=== PATIENT | female | born 1965 | race Hispanic/Latino ===

== ENCOUNTER 2017-12-06 09:27 | Inpatient (IN) | payer OTHER ==
[~2017-12-06] VITALS: Ht 162.6 cm; Wt 106.6 kg
[~2017-12-06 09:27] MED LIST: FOLIC ACID1 M1 PO; LOSARTAN-HCTZ1 EAC1 PO; MULTI-DAY VITA1 EACH PO; OMEPRAZOLE20 M2 PO; ONDANSETRON ODT4 M1 PO; PROPRANOLOL HCL10 M1 PO; VITAMIN B-1100 MG PO
--- NOTE | 2017-12-06 09:49 | ED GI/GU/ABDOMINAL COMPLAINT ---
See Addendum History of Present Illness General Chief Complaint: Nausea, Vomiting, Diarrhea Stated Complaint: VOMITING ABD PAIN Source: patient Exam Limitations: no limitations Vital Signs & Intake/Output Vital Signs & Intake/Output Vital Signs Date Time Temp Pulse Resp B/P B/P Pulse O2 O2 Flow FiO2 Mean Ox Delivery Rate 12/06 1636 99.5 116 17 110/63 100 Room Air 12/06 1546 111 12/06 1438 98.7 114 18 110/58 97 Room Air Room Air 12/06 1114 98.6 115 18 130/66 100 12/06 0931 98.7 102 18 98 Room Air Room Air Allergies Coded Allergies: NO KNOWN ALLERGIES (02/14/11) Triage Note: PT TO ED WITH C/O NAUSEA VOMITING AND DIARRHEA X 2 DAYS, FEVER AT HOME HIGH 102. AFEBRILE IN TRIAGE, TOOK TYLENOL THIS MORNING. Triage Nurses Notes Reviewed? yes ? N Is pt currently ? No Onset: Gradual Duration: hour(s): Timing: recent history Quality/Severity: moderate HPI: 52-year-old female with hx of cirrhosis, hepatitis C, presents emergency department complaining of diarrhea beginning yesterday and vomiting beginning around 1:30 AM this morning. Patient states that she has been having diarrhea approximately every 20 minutes since onset. Last episode of vomiting was around 6:30 AM today. Patient states that diarrhea appeared Dark/black. Patient also saw blood tinge to her vomitus. Patient complaining of intermittent generalized abdominal cramping and epigastric burning. Yesterday she had a fever of 102F at work and intermittent chills. Patient states her had similar symptoms approximately 1 month ago. She denies recent changes in diet, dysuria, hematuria. (Judi SYLVESTER,Joanna Titus) Reconcile Medications Ascorbic Acid (Vitamin C) 1,000 MG TABLET 1 TAB PO DAILY SUPPLEMENT (Reported ) Bifidobacterium Infantis (Align) (Unknown Strength) CAPSULE (Unknown Dose) PO DAILY PROBIOTIC (Reported) Cyanocobalamin (Vitamin B-12) (Vitamin B-12) 500 MCG TABLET 1 TAB PO DAILY SUPPLEMENT (Reported) Losartan/Hydrochlorothiazide (Losartan-Hctz 50-12.5 MG Tab) 1 EACH TABLET 1 TAB PO DAILY BP (Reported) Naphazoline HCl/Glycerin (Clear Eyes Redness Relief Drop) 0.012 %-0.25 % DROPS 1 DROP OU AD PRN DRY EYES (Reported) Turmeric Root Extract (Turmeric) 500 MG CAPSULE 2 CAP PO DAILY SUPPLEMENT ( Reported) (Ar Flowers DO) Past History Travel History Traveled to [place] past 21 day No Medical History Any Pertinent Medical History? 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 Age 71. FATHER (unknown medical history). Age 72. Hx Contributory? No (Joanna Loyd) Review of Systems Review of Systems Constitutional: Reports: see HPI. EENTM: Reports: no symptoms. Respiratory: Reports: no symptoms. Cardiovascular: Reports: no symptoms. GI: Reports: see HPI. Genitourinary: Reports: no symptoms. Musculoskeletal: Reports: no symptoms. Skin: Reports: no symptoms. Neurological/Psychological: Reports: no symptoms. Hematologic/Endocrine: Reports: no symptoms. Immunologic/Allergic: Reports: no symptoms. All Other Systems: Reviewed and Negative (Joanna Loyd) Physical Exam Physical Exam General Appearance: well developed/nourished, no apparent distress, alert, awake Head: atraumatic, normal appearance Eyes: Bilateral: normal appearance. Ears, Nose, Throat, Mouth: hearing grossly normal Neck: normal inspection, supple, full range of motion Respiratory: normal breath sounds, no respiratory distress, lungs clear Cardiovascular: tachycardia Gastrointestinal: normal bowel sounds, soft, no organomegaly, MILD epigastric tenderness Rectal: normal inspection, normal rectal tone, heme positive stool, black stool Back: normal inspection, normal range of motion Extremities: normal range of motion Neurologic/Psych: awake, alert, oriented x 3 Skin: intact, normal color, warm/dry Core Measures ACS in differential dx? No Sepsis Present: No Sepsis Focused Exam Completed? No (Judi SYLVESTER,Joanna Titus) Progress Differential Diagnosis: appendicitis, bowel obstruction, diverticulitis, gastritis, hernia, inflamm bowel dis, pancreatitis, peptic ulcer, PUD/GERD, SBO, gastroenteritis, infectious diarrhea Plan of Care: Orders Procedure Date/time Status Nothing by Mouth 12/06 D Active CBC WITHOUT DIFFERENTIAL 12/06 2000 Active CBC WITHOUT DIFFERENTIAL 12/06 1640 Active TYPE & SCREEN (NOT X-MATCH) 12/06 1639 Active Pathway - chart 12/06 1539 Active Pathway - chart 12/06 1537 Active House Staff 12/06 1537 Active Patient Data 12/06 1529 Active Admit to inpatient 12/06 1507 Active PROTHROMBIN TIME 12/06 1257 Complete Add-on Test (ER Only) 12/06 1233 Active LIPASE 12/06 1001 Complete COMPREHENSIVE METABOLIC PANEL 12/06 1001 Complete CBC WITHOUT DIFFERENTIAL 12/06 1001 Complete AMYLASE 12/06 1001 Complete RAPID VIRAL INFLUENZA A 12/06 0936 Complete VTE Mechanical Prophylaxis 12/06 UNK Active Vital Signs 12/06 UNK Active Intake & Output 12/06 UNK Active EKG 12/06 UNK Active Current Medications Sig/Param Start time Last Medication Dose Stop Time Status Admin Sodium Chloride 1,000 ML BOLUS ONE 12/06 1645 AC 12/06 (Normal Saline 0.9%) 12/06 1744 1640 Sodium Chloride 1,000 ML Q6H 12/06 1645 AC (Normal Saline 0.9%) 12/07 0444 Sodium Chloride 1,000 ML ONCE ONE 12/06 1630 AC (Normal Saline 0.9%) 12/07 0229 Octreotide Acetate 500 MCG Q10H 12/06 1315 AC 12/06 (Sandostatin Drip) 1414 Sodium Chloride 500 ML (Normal Saline 0.9%) Laboratory Tests 12/06/17 1314: PT 22.4 H, INR 2.04 H 12/06/17 1023: Anion Gap 8, Estimated GFR > 60, BUN/Creatinine Ratio 50.0 H, Glucose 111 H, Calcium 8.7, Total Bilirubin 3.8 H, AST 134 H, ALT 79 H, Alkaline Phosphatase 140 H, Total Protein 6.1 L, Albumin 2.7 L, Globulin 3.4, Albumin/Globulin Ratio 0.8 L, Amylase 64, Lipase 130, CBC w Diff NO MAN DIFF REQ, RBC 3.41 L, MCV 84.9, MCH 28.0, MCHC 33.0, RDW 18.5 H, MPV 9.9, Gran % 82.1 H, Lymphocytes % 12.1 L, Monocytes % 5.5, Eosinophils % 0, Basophils % 0.3, Absolute Granulocytes 7.0 H, Absolute Lymphocytes 1.0 L, Absolute Monocytes 0.5, Absolute Eosinophils 0, Absolute Basophils 0 Microbiology 12/06 0935 NASOPHARYN: Influenza Virus A & B Rapid Smear - COMP Repeat abdominal exam following IV medications is without tenderness. Patient's rectal exam is guaiac positive. Spoke with Dr. Blake regarding this patient -she recommends ICU admission for endoscopy. Patient has history of esophageal varicoses, no history of bleeding related to esophageal varices. Dr. Blake recommends octreotide push and IV drip. Patient reports one dose of Advil 6 days ago however no daily NSAIDs or blood thinners or aspirin. Patient with episode of bright red blood in vomit, appearance of clots, approximately one cup. Patient medicated with second dose of IV Zofran. Blood pressure is stable, patient now complaining of right upper quadrant pain. Patient's right upper quadrant ultrasound is pending. I discussed these findings with Dr. Blake, she states she will be present to evaluate the patient soon, she states she will likely scope this patient today in ICU. Dr. Flowers spoke with hospitalist regarding this patient's ICU admission, he is present to see and evaluate the patient. The patient is stable in no acute distress. Initial ED EKG: none (Judi SYLVESTER,Joanna Titus) Departure Departure Disposition: STILL A PATIENT Condition: Stable Clinical Impression Primary Impression: GI bleed Qualifiers: GI bleed type/associated pathology: unspecified gastrointestinal hemorrhage type Qualified Code: K92.2 - Gastrointestinal hemorrhage, unspecified Secondary Impressions: Alcoholic cirrhosis, Hematemesis, Hyperbilirubinemia Referrals: Krishan Cabezas MD (PCP/Family) Departure Forms: Customer Survey General Discharge Information Admission Note Spoke With: Selvin Iverson MD Documentation of Exam: Documentation of any treatments & extenuating circumstances including Concerns Regarding Discharge (functional status, medication knowledge or non-compliance, living conditions, etc.) that warrant an admission rather than observation: [ Acute GI bleeding involving hematemesis and guaiac-positive stools requiring GI consultation, endoscopy today or tomorrow, IV octreotide, repeat labs, premature discharge medically unsafe.] (Judi SYLVESTER,Joanna Titus) PA/ASSISTED LIVING ASSISTANT Co-Sign Statement Statement: ED Attending supervision documentation- [x] I saw and evaluated the patient. I have also reviewed all the pertinent lab results and diagnostic results. I agree with the findings and the plan of care as documented in the PA's/ASSISTED LIVING ASSISTANT's documentation. [] I have reviewed the ED Record and agree with the PA's/ASSISTED LIVING ASSISTANT's documentation. [] Additions or exceptions (if any) to the PAs/ASSISTED LIVING ASSISTANT's note and plan are summarized below: [] I've seen and personally examined the patient. She is a 52-year-old female who presents with upper GI bleeding. She has past medical history of cirrhosis and esophageal varices. She is being admitted to the ICU. GI has been contacted and will be performing endoscopy in the ICU. (Ar Flowers DO) Critical Care Note Critical Care Note Critical Care Time: 30-74 min (Judi SYLVESTER,Joanna Titus)
[2017-12-06 10:53] LABS: ABSOLUTE BASOPHIL COUNT 0 /CUMM (0.0-0.2); ABSOLUTE EOSINOPHIL COUNT 0 /CUMM (0.0-0.7); ABSOLUTE MONOCYTE COUNT 0.5 /CUMM (0.10-0.60); BASOPHIL % 0.3 % (0.0-2.0); EOSINOPHIL % 0 % (0-5); HEMATOCRIT 28.9 % (37-47); MEAN CORPUSCULAR VOLUME 84.9 FL (81.0-99.0); MEAN PLATELET VOLUME 9.9 FL (7.4-10.4); RBC DISTRIBUTION WIDTH 18.5 % (11.5-14.5); RED BLOOD CELL CT 3.41 /CUMM (4.20-5.40); WHITE BLOOD CELL COUNT 8.5 /CUMM (4.8-10.8)
[2017-12-06 10:54] LABS: GRANULOCYTE % 82.1 % (42.2-75.2)
[2017-12-06 10:59] LABS: PLATELET COUNT 100 /CUMM (130-400)
[2017-12-06 13:26] LABS: PT 22.4 SEC (9.4-12.5)
--- NOTE | 2017-12-06 15:31 | History & Physical ---
Jose CRYSTAL,Juarez 12/06/17 1531: General Information and HPI MD Statement: I have seen and personally examined ITZEL JORGENSEN and documented this H&P. The patient is a 52 year old F who presented with a patient stated chief complaint of [BLACK STOOL, BLOOD IN VOMITUS]. Source of Information: patient, family Exam Limitations: no limitations History of Present Illness: 52-year-old female with past medical history of cirrhosis (since 1996) with hemorrhagic gastropathy secondary to portal hypertension and grade 1 esophageal varices, hepatitis C (since 1996), alcohol abuse, hypertension, thrombocytopenia , anxiety, morbid obesity, presented to the emergency department with complaints of black-colored stool, and blood in vomitus. According to the patient, she was in her usual state of health until 3:30 PM yesterday when she had her first episode of black, tarry-looking, thick, foul- smelling painless bowel movement, after which she felt weak and dizzy, rested after which the symptoms subsided until 1 AM this morning when she started having multiple episodes with similar bowel movements now also with fresh blood, and nausea associated with vomiting which contained coffee ground color as well as fresh blood. The last episode she had was 3 PM today. She currently denies any chest pain, shortness of breath, palpitation, dizziness , bruising, leg swelling, anxiety, tremors, confusion, hallucinations, medication intake, easy bruising. Of note, she was [facility] on 06[facility], for melena , esophageal varices, thrombocytopenia and was supposed to be on PPI, propanolol besides her regular medication which she was not taking. She follows Dr. Fabio Grullon for GI issues. Allergies/Medications Allergies: Coded Allergies: NO KNOWN ALLERGIES (02/14/11) Home Med list Ascorbic Acid (Vitamin C) 1,000 MG TABLET 1 TAB PO DAILY SUPPLEMENT (Reported ) Bifidobacterium Infantis (Align) (Unknown Strength) CAPSULE (Unknown Dose) PO DAILY PROBIOTIC (Reported) Cyanocobalamin (Vitamin B-12) (Vitamin B-12) 500 MCG TABLET 1 TAB PO DAILY SUPPLEMENT (Reported) Losartan/Hydrochlorothiazide (Losartan-Hctz 50-12.5 MG Tab) 1 EACH TABLET 1 TAB PO DAILY BP (Reported) Naphazoline HCl/Glycerin (Clear Eyes Redness Relief Drop) 0.012 %-0.25 % DROPS 1 DROP OU AD PRN DRY EYES (Reported) Turmeric Root Extract (Turmeric) 500 MG CAPSULE 2 CAP PO DAILY SUPPLEMENT ( Reported) Compliance With Home Meds: POOR (was not taking ppi, propanolol) Past History Travel History Traveled to [place] past 21 day No Medical History Neurological: NONE EENT: NONE Cardiovascular: hypertension Respiratory: pneumonia, 2011 Gastrointestinal: peptic ulcer disease (unsure), diverticulosis coli Hepatic: cirrhosis (1996), hepatitis C (1996) Renal: NONE Musculoskeletal: NONE Psychiatric: alcohol dependence, anxiety Endocrine: morbid obesity Blood Disorders: thrombocytopenia (cirrhotic) Cancer(s): NONE 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 Age 71. FATHER (unknown medical history). Age 72. Psychosocial History Where do you live? Home Who Do You Live With? spouse, child Services at Home: None Primary Language: Vietnamese Smoking Status: Former Smoker (8 yrs, 5 cig/day, quit 12 yrs) ETOH Use: occasional use, 2 glasses of wine twice a month, November 2017 Illicit Drug Use: denies illicit drug use Living Will? 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 Ambulation: independent IADLs Independent: shopping, housework, finances, food prep, telephone, transportation , medication admin. Review of Systems Review of Systems Constitutional: Reports: no symptoms. EENTM: Reports: no symptoms. Cardiovascular: Reports: no symptoms. Respiratory: Reports: no symptoms. GI: Reports: see HPI, diarrhea, nausea, vomiting. Genitourinary: Reports: no symptoms. Musculoskeletal: Reports: no symptoms. Skin: Reports: no symptoms. Neurological/Psychological: Reports: no symptoms. Hematologic/Endocrine: Reports: no symptoms. All Other Systems: Reviewed and Negative Exam & Diagnostic Data Last 24 Hrs of Vital Signs/I&O Vital Signs Date Time Temp Pulse Resp B/P B/P Pulse O2 O2 Flow FiO2 Mean Ox Delivery Rate 12/06 1438 98.7 114 18 110/58 97 Room Air Room Air 12/06 1114 98.6 115 18 130/66 100 12/06 0931 98.7 102 18 98 Room Air Room Air Intake & Output 12/06 1600 12/06 0800 12/06 0000 Intake Total Output Total Balance Patient 106.594 kg Weight Weight Reported by Patient Measurement Method Physical Exam General Appearance Alert, Oriented X3, Cooperative, No Acute Distress, morbidly obese Last 24 Hrs of Labs/Maciel: Laboratory Tests 12/06/17 1654: CBC w Diff NO MAN DIFF REQ, RBC 3.06 L, MCV 85.2, MCH 28.2, MCHC 33.1, RDW 17.8 H, MPV 9.9, Gran % 74.8, Lymphocytes % 17.7 L, Monocytes % 6.7, Eosinophils % 0.1, Basophils % 0.7, Absolute Granulocytes 8.0 H, Absolute Lymphocytes 1.9, Absolute Monocytes 0.7 H, Absolute Eosinophils 0, Absolute Basophils 0.1 12/06/17 1314: PT 22.4 H, INR 2.04 H 12/06/17 1023: Anion Gap 8, Estimated GFR > 60, BUN/Creatinine Ratio 50.0 H, Glucose 111 H, Calcium 8.7, Total Bilirubin 3.8 H, AST 134 H, ALT 79 H, Alkaline Phosphatase 140 H, Total Protein 6.1 L, Albumin 2.7 L, Globulin 3.4, Albumin/Globulin Ratio 0.8 L, Amylase 64, Lipase 130, CBC w Diff NO MAN DIFF REQ, RBC 3.41 L, MCV 84.9, MCH 28.0, MCHC 33.0, RDW 18.5 H, MPV 9.9, Gran % 82.1 H, Lymphocytes % 12.1 L, Monocytes % 5.5, Eosinophils % 0, Basophils % 0.3, Absolute Granulocytes 7.0 H, Absolute Lymphocytes 1.0 L, Absolute Monocytes 0.5, Absolute Eosinophils 0, Absolute Basophils 0 Microbiology 12/06 1649 UPPER RESP: Surveillance Culture - ORD 12/06 1649 GI: Surveillance Culture - ORD 12/06 0935 NASOPHARYN: Influenza Virus A & B Rapid Smear - COMP Diagnostic Data EKG Results not done in the ED Other Results Physical examnination: General: obese patient not in distress Head: Normocephalic, atraumatic Eyes: Pupils normal in size, regular, reacting to light and accommodation, EOM normal, icterus noted in sclera b/l Ears: B/l normal on inspection Nose: Normal on inspection Throat/mouth: Dry mucosa Neck: Supple, full range of motion, no thyromegaly Heart: Regular rate, regular rhythm, tachycardia Lung: Normal breath sound bilaterally Added sound not heard Abd: Soft, non-tender, no distention appreciated Back: Normal range of motion Extremities: Normal knee exam bilaterally, b/l trace pedal edema, Distal neurovascular intact Neurologic: Alert, oriented x3, Cranial exam grossly intact, Speech is clear and coherent Skin: Warm and dry, no bruises Psychiatric: Calm, cooperative, coherant, no SI, no HI Assessment/Plan Assessment: 52-year-old female with past medical history of cirrhosis (since 1996) with hemorrhagic gastropathy secondary to portal hypertension and grade 1 esophageal varices, hepatitis C (since 1996), alcohol abuse, hypertension, thrombocytopenia , anxiety, morbid obesity, presented to the emergency department with complaints of black-colored stool, and blood in vomitus. Patient's vital parameters in the emergency department was suggestive of volume depletion, and also had active ongoing episodes of black stools and bloody vomitus thus is planned to be admitted in the ICU for the management of following issues: # Acute blood loss anemia, secondary to GI bleeding Patient's history of cirrhosis, hepatitis C, thrombocytopenia, alcohol abuse, possibly serves as a background for her acute episode of black tarry stool and bloody vomitus, making GI bleeding the most likely diagnosis. Her blood pressure currently is on the lower range with slight tachycardia suggesting of volume depletion. * Admit patient in the ICU * Close monitoring of vital parameters, intake/output * CVC every 6 hours * 2 large bore IV cannula * 1 L normal saline fluid bolus * Normal saline infusion at 150 mL per hour for 2 bags * Continue octreotide infusion * Pantoprazole IV infusion * GI consultation with Dr. Blake has been placed. The patient will likely go for upper GI endoscopy later today. * Patient verbally already agreed to central line placement if necessary #Hypertension Will hold her antihypertensive medications for now #Diet: NPO for now #DVT ppx: ALPS only (bleeding) #Code status: Full code As Ranked By This Provider Problem List: 1. GI bleed Qualifiers GI bleed type/associated pathology: unspecified gastrointestinal hemorrhage type Qualified Code: K92.2 - Gastrointestinal hemorrhage, unspecified 2. Thrombocytopenia 3. Hepatitis C 4. Cirrhosis 5. History of - hypertension Core Measures/Misc (06/08) Acute Coronary Syndrome ACS Diagnosis: No Congestive Heart Failure Congestive Heart Failure Diagnosis No Cerebrovascular Accident CVA/TIA Diagnosis: No VTE (View Protocol) VTE Risk Factors Obesity No Mechanical VTE Prophylaxis d/t N/A MechProphylax Ordered No VTE Pharm Prophylaxis d/t Bleeding (Active) Sepsis (View protocol) Sepsis Present: No Selvin Iverson MD 12/06/17 5371: Attending MD Review Statement Attending Statement Attending MD Statement: examined this patient, discuss w/resident/PA/GARMENT MENDER, agreed w/resident/PA/GARMENT MENDER, discussed with family, discussed with nursing Attending Assessment/Plan: Ms. Jorgensen is a 52-year-old female with long standing cirrhosis with portal gastropathy, hepatitis C, alcoholism, hypertension, thrombocytopenia, anxiety, morbid obesity, presented to the emergency department with complaints of nausea, hematemesis and black-colored stool Assessment 1. Hematemesis and melena with underlying cirrhosis - UGI bleeding source likely 2. Acute blod loss anemi 4. Alcoholism 4. Chronic hepatitis C Plan 1. Admit to ICU with Urgent EGD. GI informed. 2. IV Ceftriaxone 1 g to be administered. Continue with IV protonix and octreotide infusion 3. Hb and Hct to be repeated Q 4 hrly as per GI 4. Ceftriaxone 1 g IV given for prophylaxis and high risk of infection in these patients 5. Check alpha feto protein 6. GI recommend 1 unit of FFP and vitamin K
[2017-12-06] MEDS ORDERED: ALIGN4 M1 PO (15:52)
[2017-12-06] MEDS ORDERED: TURMERIC500 M2 PO (15:52)
[2017-12-06] MEDS ORDERED: VITAMIN C1000 M4 PO (15:52)
[2017-12-06] MEDS ORDERED: [UNRECOGNIZED DRUG - OTHER] OU (15:53)
[2017-12-06] MEDS ORDERED: VITAMIN B-12500 MC2 PO (15:53)
--- NOTE | 2017-12-06 16:06 | ULTRASOUND REPORT ---
EXAMINATION: US ABDOMEN LIMITED CLINICAL INFORMATION: Nausea, vomiting and diarrhea. COMPARISON: Abdominal ultrasound dated 05/28/2016. TECHNIQUE: Real-time imaging of the right upper quadrant abdominal viscera. FINDINGS: PANCREAS: Poorly visualized secondary to overlapping bowel gas. ABDOMINAL AORTA: The proximal segment is normal in caliber. INFERIOR VENA CAVA: Visualized portions are normal. LIVER: The liver demonstrates normal size, contour and increased echogenicity. No focal lesion or intrahepatic biliary duct dilatation. GALLBLADDER: Normal. The gallbladder is physiologically distended without evidence of stones, sludge, polyps, wall thickening or pericholecystic fluid. COMMON BILE DUCT: Normal in caliber measuring 0.3 cm in diameter. RIGHT KIDNEY: Normal. No hydronephrosis. No renal calculi or focal parenchymal lesions. The kidney measures 11.3 cm in maximum dimension. FREE FLUID: None. IMPRESSION: 1. There is generalized increase in hepatic echotexture, consistent with fatty infiltration or hepatocellular disease. Please correlate clinically. No focal hepatic mass or intrahepatic biliary dilatation is seen. 2. Limited ultrasound examination of the pancreas due to overlapping bowel gas.
[2017-12-06 17:01] LABS: ABSOLUTE BASOPHIL COUNT 0.1 /CUMM (0.0-0.2); ABSOLUTE EOSINOPHIL COUNT 0 /CUMM (0.0-0.7); ABSOLUTE LYMPH COUNT 1.9 /CUMM (1.2-3.4); ABSOLUTE MONOCYTE COUNT 0.7 /CUMM (0.10-0.60); BASOPHIL % 0.7 % (0.0-2.0); EOSINOPHIL % 0.1 % (0-5); GRANULOCYTE % 74.8 % (42.2-75.2); HEMATOCRIT 26.1 % (37-47); MEAN CORPUSCULAR HGB 28.2 PG (27.0-31.0); MEAN CORPUSCULAR HGB CONC 33.1 G/DL (33.0-37.0); MEAN CORPUSCULAR VOLUME 85.2 FL (81.0-99.0); MEAN PLATELET VOLUME 9.9 FL (7.4-10.4); PLATELET COUNT 109 /CUMM (130-400); RBC DISTRIBUTION WIDTH 17.8 % (11.5-14.5); RED BLOOD CELL CT 3.06 /CUMM (4.20-5.40); WHITE BLOOD CELL COUNT 10.7 /CUMM (4.8-10.8)
[2017-12-06 18:03] VITALS: BP 107/57
--- NOTE | 2017-12-06 19:03 | Cons- Gastroenterology ---
General Information and HPI Consulting Request Date of Consult: 12/06/17 Requested By: Selvin Iverson MD Reason for Consult: 1. Hematemesis 2. Acute blood loss anemia 3. Cirrhosis 4. Chronic hepatitis C 5. Thrombocytopenia Source of Information: patient, old records Exam Limitations: no limitations History of Present Illness: Patient is a 52-year-old white female with past medical history of chronic hepatitis C treated in the distant past with pegylated interferon and ribavirin without response. She has not been treated since then with a DAA. She has known cirrhosis. She last had an EGD in May [address] Aren Grullon. At that time she was found to have mild portal hypertensive gastropathy and small grade 1 distal esophageal varices but no gastric varices. At that time he started her on propranolol and counseled alcohol rehabilitation. Patient reports that she generally does not drink but did have 2 drinks last weekend. Per records she has been noncompliant with labs and medications (did not take propranolol or PPI prescribed). On admission she had an ultrasound of the abdomen the results are as follows: IMPRESSION: 1. There is generalized increase in hepatic echotexture, consistent with fatty infiltration or hepatocellular disease. Please correlate clinically. No focal hepatic mass or intrahepatic biliary dilatation is seen. 2. Limited ultrasound examination of the pancreas due to overlapping bowel gas. She had a CT scan of the abdomen and pelvis done in 2016 the results of which are as follows: LIVER, GALLBLADDER, AND BILIARY TREE: Redemonstrated is cirrhotic morphology of the liver, characterized by sharp and morphology of the liver and nodular contour of the liver surface. No contour deforming liver lesions are identified and there is no appreciable intrahepatic or extrahepatic biliary ductal dilatation. Redemonstrated is a subcentimeter radiopaque stone within the gallbladder lumen, without secondary signs of acute cholecystitis. Hyperdense material layering dependently within the gallbladder is nonspecific but could reflect hyperdense biliary sludge. On admission she had an H/H of 8.6/26.1 with 109,000 platelets. In May of 2016 her H/H was 10.7/32.3 with 87,,000 platelets. Her Total Bilirubin was 3.8 on admission with a direct bilirubin of 2.1. Which in 2016 (05/28 was 2.7 at it's maximal). Her INR in 2016 was 1.53 andon admission PT/INR was 22.4/2.04. Patient reports that day before yesterday she developed nausea vomiting and diarrhea. She reports that initially she vomited undigested food stuff which was then followed by hematemesis of black material and red blood. She feels like she was coming down with a virus. She had no syncope or loss of consciousness. Denies chest pain or shortness of breath. She had an admission in 2016 for GI bleed without a source being identified. She had been seen at another hospital previously again with upper GI bleeding and again at [facility] where she had an EGD (by Dr. Dorsey) which revealed clot in the fundus but no identified source of bleeding. She is currently comfortable and denies nausea vomiting or abdominal pain. She had an episode of hematemesis of red blood of approximately 1 cup in the ED. Allergies/Medications Allergies: Coded Allergies: NO KNOWN ALLERGIES (02/14/11) Home Med List: Ascorbic Acid (Vitamin C) 1,000 MG TABLET 1 TAB PO DAILY SUPPLEMENT (Reported ) Bifidobacterium Infantis (Align) (Unknown Strength) CAPSULE (Unknown Dose) PO DAILY PROBIOTIC (Reported) Cyanocobalamin (Vitamin B-12) (Vitamin B-12) 500 MCG TABLET 1 TAB PO DAILY SUPPLEMENT (Reported) Losartan/Hydrochlorothiazide (Losartan-Hctz 50-12.5 MG Tab) 1 EACH TABLET 1 TAB PO DAILY BP (Reported) Naphazoline HCl/Glycerin (Clear Eyes Redness Relief Drop) 0.012 %-0.25 % DROPS 1 DROP OU AD PRN DRY EYES (Reported) Turmeric Root Extract (Turmeric) 500 MG CAPSULE 2 CAP PO DAILY SUPPLEMENT ( Reported) Current Medications: Current Medications Sig/Param Start time Last Medication Dose Route Stop Time Status Admin Ceftriaxone Sodium 0 .STK-MED ONE 12/06 1418 DC .ROUTE Ceftriaxone Sodium 1,000 MG ONCE ONE 12/06 1315 DC 12/06 IV 12/06 1316 1414 Erythromycin 250 MG ONE ONE 12/06 1900 AC Sodium Chloride 100 ML IV 12/06 1959 Metoclopramide HCl 0 .STK-MED ONE 12/06 1214 DC .ROUTE Metoclopramide HCl 10 MG ONCE ONE 12/06 1200 DC 12/06 IV 12/06 1201 1213 Octreotide Acetate 50 MCG ONCE ONE 12/06 1315 DC 12/06 IV 12/06 1316 1414 Octreotide Acetate 500 MCG Q10H 12/06 1315 AC 12/06 Sodium Chloride 500 ML IV 1414 Ondansetron HCl 0 .STK-MED ONE 12/06 1432 DC .ROUTE Ondansetron HCl 4 MG ONCE ONE 12/06 1430 DC 12/06 IV 12/06 1431 1429 Ondansetron HCl 0 .STK-MED ONE 12/06 1030 DC .ROUTE Ondansetron HCl 4 MG ONCE ONE 12/06 1000 DC 12/06 IV 12/06 1001 1026 Pantoprazole Sodium 40 MG Q5H 12/06 1730 AC Sodium Chloride 100 ML IV Phytonadione 5 MG ONE ONE 12/06 1900 AC SC 12/06 1901 Sodium Chloride 1,000 ML BOLUS ONE 12/06 1645 DC 12/06 IV 12/06 1744 1640 Sodium Chloride 1,000 ML Q6H 12/06 1645 AC 12/06 IV 12/07 0444 1725 Sodium Chloride 1,000 ML ONCE ONE 12/06 1630 CAN IV 12/07 0229 Sodium Chloride 1,000 ML BOLUS ONE 12/06 1000 DC 12/06 IV 12/06 1059 1026 Past History Travel History Traveled to [place] past 21 day No Medical History Neurological: NONE EENT: NONE Cardiovascular: hypertension Respiratory: pneumonia, 2010 Gastrointestinal: peptic ulcer disease (unsure), diverticulosis coli Hepatic: cirrhosis (1996), hepatitis C (1996) Renal: NONE Musculoskeletal: NONE Psychiatric: alcohol dependence, anxiety Endocrine: morbid obesity Blood Disorders: thrombocytopenia (cirrhotic) Cancer(s): NONE VACUUM KETTLE COOK/Reproductive: NONE Surgical History Surgical History: 2010: I&D samson-rectal abscess Family History Relations & Conditions If Any: MOTHER (DM). Age 71. FATHER (unknown medical history). Age 72. Psychosocial History Where Do You Live? Home Who Do You Live With? spouse, child Services at Home: None Primary Language: [place] Smoking Status: Former Smoker (8 yrs, 5 cig/day, quit 12 yrs) ETOH Use: occasional use, 2 glasses of wine twice a month, November 2017 Illicit Drug Use: denies illicit drug use Living Will? no Power of Teletypist/HCP? no Functional Ability ADLs Independent: dressing, eating, toileting, bathing. Ambulation: independent IADLs Independent: shopping, housework, finances, food prep, telephone, transportation , medication admin. Exam & Diagnostic Data Vital Signs and I&O Vital Signs Date Time Temp Pulse Resp B/P B/P Pulse O2 O2 Flow FiO2 Mean Ox Delivery Rate 12/06 1803 99.0 110 16 107/57 12/06 1721 99.5 112 17 104/65 99 Room Air 12/06 1636 99.5 116 17 110/63 100 Room Air 12/06 1546 111 12/06 1438 98.7 114 18 110/58 97 Room Air Room Air 12/06 1114 98.6 115 18 130/66 100 12/06 0931 98.7 102 18 98 Room Air Room Air Intake & Output 12/06 1600 12/06 0400 12/05 1600 12/05 0400 12/04 1600 12/04 0400 Intake Total Output Total Balance Patient 235 lb Weight Weight Reported by Patient Measurement Method Physical Exam General Appearance: well developed/nourished, no apparent distress, alert, awake Head: atraumatic Neck: normal inspection, supple, full range of motion Respiratory: normal breath sounds, chest non-tender, lungs clear Cardiovascular: regular rate/rhythm, edema Gastrointestinal: normal bowel sounds, soft, non-tender, No rebound or guarding Extremities: normal inspection Neurologic/Psych: no motor/sensory deficits, awake, alert, oriented x 3 Cranial Nerves: normal hearing, normal speech, PERRL Skin: intact, warm/dry Results Pertinent Lab Results: Laboratory Tests 12/06 12/06 1654 1314 Coagulation PT (9.4 - 12.5 SEC) 22.4 H INR (0.90 - 1.19) 2.04 H Hematology CBC w Diff NO MAN DIFF REQ WBC (4.8 - 10.8 /CUMM) 10.7 RBC (4.20 - 5.40 /CUMM) 3.06 L Hgb (12.0 - 16.0 G/DL) 8.6 L Hct (37 - 47 %) 26.1 L MCV (81.0 - 99.0 FL) 85.2 MCH (27.0 - 31.0 PG) 28.2 MCHC (33.0 - 37.0 G/DL) 33.1 RDW (11.5 - 14.5 %) 17.8 H Plt Count (130 - 400 /CUMM) 109 L MPV (7.4 - 10.4 FL) 9.9 Gran % (42.2 - 75.2 %) 74.8 Lymphocytes % (20.5 - 51.1 %) 17.7 L Monocytes % (1.7 - 9.3 %) 6.7 Eosinophils % (0 - 5 %) 0.1 Basophils % (0.0 - 2.0 %) 0.7 Absolute Granulocytes (1.4 - 6.5 /CUMM) 8.0 H Absolute Lymphocytes (1.2 - 3.4 /CUMM) 1.9 Absolute Monocytes (0.10 - 0.60 /CUMM) 0.7 H Absolute Eosinophils (0.0 - 0.7 /CUMM) 0 Absolute Basophils (0.0 - 0.2 /CUMM) 0.1 12/06 1023 Chemistry Sodium (137 - 145 mmol/L) 138 Potassium (3.5 - 5.1 mmol/L) 4.1 Chloride (98 - 107 mmol/L) 103 Carbon Dioxide (22 - 30 mmol/L) 27 Anion Gap (5 - 16) 8 BUN (7 - 17 mg/dL) 35 H Creatinine (0.5 - 1.0 mg/dL) 0.7 Estimated GFR (>60 ml/min) > 60 BUN/Creatinine Ratio (7 - 25 %) 50.0 H Glucose (65 - 99 mg/dL) 111 H Calcium (8.4 - 10.2 mg/dL) 8.7 Total Bilirubin (0.2 - 1.3 mg/dL) 3.8 H Direct Bilirubin (< 0.4 mg/dL) 2.1 H AST (14 - 36 U/L) 134 H ALT (9 - 52 U/L) 79 H Alkaline Phosphatase (<127 U/L) 140 H Total Protein (6.3 - 8.2 g/dL) 6.1 L Albumin (3.5 - 5.0 g/dL) 2.7 L Globulin (1.9 - 4.2 gm/dL) 3.4 Albumin/Globulin Ratio (1.1 - 2.2 %) 0.8 L Amylase (30 - 110 U/L) 64 Lipase (23 - 300 U/L) 130 Hematology CBC w Diff NO MAN DIFF REQ WBC (4.8 - 10.8 /CUMM) 8.5 RBC (4.20 - 5.40 /CUMM) 3.41 L Hgb (12.0 - 16.0 G/DL) 9.6 L Hct (37 - 47 %) 28.9 L MCV (81.0 - 99.0 FL) 84.9 MCH (27.0 - 31.0 PG) 28.0 MCHC (33.0 - 37.0 G/DL) 33.0 RDW (11.5 - 14.5 %) 18.5 H Plt Count (130 - 400 /CUMM) 100 L MPV (7.4 - 10.4 FL) 9.9 Gran % (42.2 - 75.2 %) 82.1 H Lymphocytes % (20.5 - 51.1 %) 12.1 L Monocytes % (1.7 - 9.3 %) 5.5 Eosinophils % (0 - 5 %) 0 Basophils % (0.0 - 2.0 %) 0.3 Absolute Granulocytes (1.4 - 6.5 /CUMM) 7.0 H Absolute Lymphocytes (1.2 - 3.4 /CUMM) 1.0 L Absolute Monocytes (0.10 - 0.60 /CUMM) 0.5 Absolute Eosinophils (0.0 - 0.7 /CUMM) 0 Absolute Basophils (0.0 - 0.2 /CUMM) 0 Assessment/Plan Assessment/Recommendations: ASSESSMENT: 1. Hematemesis. Question Charis-Dean tear versus variceal bleeding versus bleeding due to portal hypertensive gastropathy. 2. Anemia area multifactorial patient likely has chronic anemia related to underlying cirrhosis. 3. Chronic hepatitis C. Patient has not been treated with DARIANA which patient feels has been due to scheduling difficulties as an outpatient. However per reports patient has been noncompliant with indications, as well as laboratory studies ordered. 4. Thrombocytopenia and Coagulopathy related to cirrhosis 5. Alcohol Dependence -- not clearly in remission 6. Cirrhosis RECOMMENDATIONS: 1. 2 large-bore IV 2. Volume resuscitate with normal saline at 150 per hour 3. Serial H&H every 4 hours 16 hours 4. Urgent EGD. I discussed the risks and benefits of this with the patient and her 5. Octreotide 50 g bolus and 50 mcg/h 5. Erythromycin 250 mg IV to clear stomach 6. Ceftriaxone 1 g IV. This was discussed with the PA in ED 7. Protonix bolus and drip given history of gastropathy and unclear etiology of bleeding 8. Would check alpha-fetoprotein given history of cirrhosis 9. Would give 1 unit of FFP as well as subcutaneous vitamin K given coagulopathy 10. Would follow CMP and CBC PT/INR daily Consult Acknowledgment - Thank you for your consult request.
[2017-12-06 20:00] VITALS: BP 93/55
--- NOTE | 2017-12-06 20:44 | Proc Note Endoscopy ---
Endoscopy Procedure Medical History: unchanged Mental Status: alert/oriented Heart/Lung Eval Prior to Sedation: within normal limits Candidate for Sedation? Yes Procedure Date: 12/06/17 Procedure Type: EGD with band ligation of esophageal varices Physician Underwriter: MD Saucedo Deborah E. ASA Classification: IV (Emergency) Indications: 1. Hematemesis 2. Acute GI blood loss 3. Cirrhosis 4. Alcohol dependence 4. Chronic hepatitis C Instrument: diagnostic gastroscope Meds Received: MAC Patient's Tolerance: good Complications: none Extent Reached: second part of duodenum Procedure: Note: Informed consent was obtained prior to procedure. Risks and benefits of procedure were discussed with patient. Potential complications discussed included perforation, bleeding, abdominal pain, and adverse reaction to medications. It was explained that iany or all of these complications could result in the need for extended hospitalization, emergency surgery, transfusion of packed red blood cells (with the risk of HIV or hepatitis virus), intubation with mechanical ventilation, and possible need for antibiotics. It was further explained that an existing tumor polyp or mucosal abnormality might not be identified at the time of the procedure thus resulting in a missed opportunity for early diagnosis and treatment of a gastrointestinal malignancy or disease with possible interval development of a gastrointestinal cancer or other disease with possible worsening of clinical condition in the interval between endoscopies. It was also discussed that complications are not limited to those listed above. Possible alternatives to endoscopic treatment or evaluation were discussed. All questions were answered. Continuous EKG and blood pressure monitors were attached. Supplemental oxygen was provided with O2 Sat monitoring. Patient was placed in the left lateral decubitus position. A surgical timeout was performed. All persons in the room were identified. All concerns were expressed and answered. A bite block was placed in the mouth and sedation was administered by anesthesia and titrated to comfort prior to starting the procedure. The Olympus upper endoscope was advanced under direct vision to the level of the third portion of the duodenum. Esophagus: The esophagus had a normal mucosal vascular pattern throughout its entirety. The GE junction was identified and was normal. The Z line was located at 37 cm from the incisors. There was 1 column of grade 2 esophageal varices with rodriguez red spots and red sharan sign getting at the GE junction and extending to approximately 28 cm from the incisors. After the upper endoscope was withdrawn a Nolio 7 shooter and was attached and reintroduced. 3 bands were placed with the most proximal band being placed at 30 cm from the incisors. There was no bleeding either before or during or after banding. Stomach: There is diffuse erythema, congestion and snake-skinned reticulation of the gastric mucosa involving the body of the stomach consistent with portal hypertensive gastropathy. There was no blood within the stomach. There was erythema in the immediate prepyloric region with mild erosion but no bleeding. Retroflexed view of the cardiofundic region revealed portal hypertensive gastropathy as described above. It were no gastric varices. There were normal rugae and normal distensibility. The pylorus was patent and easily intubated. Duodenum: The duodenum was fully examined from bulb down to the third portion. There was a normal mucosal vascular pattern throughout. With the endoscope in the forward-viewing position, it was slowly withdrawn and all areas were re-inspected and findings are as described previously. Patient tolerated the procedure well. EBL: Minimal Specimens Removed: None Findings: 1. One column of grade 2 esophageal varices with stigmata of bleeding 2. Portal hypertensive gastropathy Impression: 1. One column of grade 2 esophageal varices with stigmata of bleeding 2. Portal hypertensive gastropathy Recommendations: 1. Continue octreotide IV for at least 72 hours 2. Nothing by mouth until a.m. then begin clear liquids 3. Serial H&H every 4 hours for at least 16 hours 4. Monitor for signs of bleeding either gross luminal blood loss or drop in H&H 5. Check daily CBC, CMP, PT/INR 6. DT prophylaxis given patient's history of alcohol abuse 7. Check hepatitis C viral load
[2017-12-06 22:00] VITALS: BP 104/61; BP 121/63
[2017-12-07] VITALS (11 sets, daily range): BP systolic 102–144; BP diastolic 48–77
[2017-12-07] LABS: ABSOLUTE BASOPHIL COUNT 0 /CUMM (0.0-0.2); ABSOLUTE EOSINOPHIL COUNT 0 /CUMM (0.0-0.7); ABSOLUTE GRANULOCYTE CT 5.4 /CUMM (1.4-6.5); ABSOLUTE LYMPH COUNT 2.6 /CUMM (1.2-3.4); ABSOLUTE MONOCYTE COUNT 0.8 /CUMM (0.10-0.60); BASOPHIL % 0.3 % (0.0-2.0); EOSINOPHIL % 0.4 % (0-5); GRANULOCYTE % 61.3 % (42.2-75.2); MEAN CORPUSCULAR HGB 28.4 PG (27.0-31.0); MEAN CORPUSCULAR HGB CONC 33.2 G/DL (33.0-37.0); MEAN CORPUSCULAR VOLUME 85.5 FL (81.0-99.0); MEAN PLATELET VOLUME 9.6 FL (7.4-10.4); PLATELET COUNT 78 /CUMM (130-400); RBC DISTRIBUTION WIDTH 18.2 % (11.5-14.5); RED BLOOD CELL CT 2.35 /CUMM (4.20-5.40); WHITE BLOOD CELL COUNT 8.8 /CUMM (4.8-10.8)
[2017-12-07 00:18] LABS: HEMATOCRIT 20.1 % (37-47)
--- NOTE | 2017-12-07 00:49 | Event Note ---
Event Note Event Note: This is a 52-year-old female admitted for melena, hematemesis with underlying cirrhosis for upper GIB status post urgent EGD with band ligation of esophageal varices. she was found to have one column of grade 2 esophageal varices with stigmata of bleeding and Portal hypertensive gastropathy on EGD. * Hemoglobin dropped from 9.6-8.6-6.7 with hematocrit 20. * Denied any symptoms of active bleeding now -bloody vomiting, blood in stool. * she is Hemodynamically stable-afebrile, heart rate 100, blood pressure 110/70. * Offers no complaints other than abdominal discomfort. * She is getting Protonix and octreotide infusions. * Discussed with Dr. Rakan friedman and Dr. Blake gastroeneterologist about acute drop in hemoglobin. * Type and screen was done. * We will transfuse 1 unit of packed RBC now. * Recheck hemoglobin and hematocrit in 4 hours. * Will closely monitor for any signs of bleeding. * Discussed with patient at bedside. * NPO tonight.
[2017-12-07 07:12] LABS: PT 21.9 SEC (9.4-12.5)
[2017-12-07 07:24] LABS: ABSOLUTE BASOPHIL COUNT 0 /CUMM (0.0-0.2); ABSOLUTE EOSINOPHIL COUNT 0.1 /CUMM (0.0-0.7); ABSOLUTE GRANULOCYTE CT 4.8 /CUMM (1.4-6.5); ABSOLUTE LYMPH COUNT 2.6 /CUMM (1.2-3.4); ABSOLUTE MONOCYTE COUNT 0.6 /CUMM (0.10-0.60); BASOPHIL % 0.5 % (0.0-2.0); EOSINOPHIL % 1.8 % (0-5); GRANULOCYTE % 58.5 % (42.2-75.2); HEMATOCRIT 23.7 % (37-47); MEAN CORPUSCULAR HGB 28.5 PG (27.0-31.0); MEAN CORPUSCULAR HGB CONC 32.7 G/DL (33.0-37.0); MEAN CORPUSCULAR VOLUME 87.2 FL (81.0-99.0); MEAN PLATELET VOLUME 9.6 FL (7.4-10.4); RBC DISTRIBUTION WIDTH 17.8 % (11.5-14.5); RED BLOOD CELL CT 2.72 /CUMM (4.20-5.40); WHITE BLOOD CELL COUNT 8.1 /CUMM (4.8-10.8)
[2017-12-07 07:37] LABS: PLATELET COUNT 68 /CUMM (130-400)
--- NOTE | 2017-12-07 08:37 | PN- Resident CRCU ---
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 She remained hemodynamically stable overnight with a slight drop in H&H requiring 1 unit of PRBC transfusion. She had a Tmax of 100.4 overnight. She remained on fluids, IV Octreotide, IV protonix, IV NS intially. As we lost one of the peripheral IV line, Discontinued IV protonix and continued on IV octreotide. Started on clear liquid diet and discontinued IV NS. Objective Vital Signs & I&O Last 8 Hrs of Vitals and I&O: Vital Signs Date Time Temp Pulse Resp B/P B/P Pulse O2 O2 Flow FiO2 Mean Ox Delivery Rate 12/07 0600 99.3 98 24 123/70 12/07 0400 99.3 92 24 144/77 12/07 0200 99.3 109 24 102/69 12/07 0000 99.3 104 24 121/63 12/06 2200 100.4 109 20 104/61 12/06 2200 99.3 104 24 121/63 98 Room Air 12/06 2000 100.4 114 24 93/55 12/06 2000 100 Nasal 2.0L Cannula 12/06 1803 99.0 110 16 107/57 12/06 1721 99.5 112 17 104/65 99 Room Air 12/06 1636 99.5 116 17 110/63 100 Room Air 12/06 1546 111 12/06 1438 98.7 114 18 110/58 97 Room Air Room Air 12/06 1114 98.6 115 18 130/66 100 12/06 0931 98.7 102 18 98 Room Air Room Air Intake & Output 12/07 1600 12/07 0800 12/07 0000 Intake Total 1720 2260 Output Total Balance 1720 2260 Intake, Blood 350 250 Product Intake, IV 1370 2009 Number 3 2 Bowel Movements Patient 106.594 kg Weight Weight Reported by Patient Measurement Method Exam General Appearance: alert, awake, tired Head: atraumatic, normal appearance Ears, Nose, Throat: normal pharynx, normal ENT inspection Neck: normal inspection, supple Respiratory: normal breath sounds, chest non-tender, no respiratory distress Cardiovascular: regular rate/rhythm Gastrointestinal: normal bowel sounds, soft, non-tender Extremities: normal inspection, normal capillary refill Cranial Nerves: normal hearing, normal speech, PERRL Skin: intact, normal color, warm/dry Skin Temp/Moisture Exam: Warm/Dry IV Drips IV Drips: Octreotide Nutrition Nutrition: clear liquid diet Current Medications: Current Medications Sig/Param Start time Last Medication Dose Route Stop Time Status Admin Benzocaine/Menthol 1 TORSTEN Q2P PRN 12/07 1000 AC 12/07 PO 1041 Ceftriaxone Sodium 1,000 MG DAILY 12/07 1314 UNVr IV 12/08 2000 Ceftriaxone Sodium 0 .STK-MED ONE 12/06 1418 DC .ROUTE Erythromycin 250 MG ONE ONE 12/06 1900 DC 12/06 Sodium Chloride 100 ML IV 12/06 1959 2055 Lorazepam 0 Q1P PRN 12/06 2030 AC 12/06 IV 2113 Magnesium Chloride 64 MG BID 12/07 1000 AC 12/07 PO 12/08 0300 1041 Magnesium Sulfate 1 GM Q2H 12/07 0945 DC Dextrose/Water 100 ML IV 12/07 1344 Multivitamins 1 DAMASO DAILY 12/07 1000 AC 12/07 Sodium Chloride 500 ML IV 1044 Multivitamins 1 DAMASO ONCE ONE 12/06 1900 DC 12/06 Sodium Chloride 500 ML IV 12/06 2259 2109 Octreotide Acetate 500 MCG Q10H 12/06 1315 AC 12/07 Sodium Chloride 500 ML IV 0952 Ondansetron HCl 0 .STK-MED ONE 12/06 1432 DC .ROUTE Ondansetron HCl 4 MG ONCE ONE 12/06 1430 DC 12/06 IV 12/06 1431 1429 Pantoprazole Sodium 40 MG Q5H 12/06 1730 DC 12/07 Sodium Chloride 100 ML IV 0952 Phytonadione 5 MG ONE ONE 12/06 1900 DC 12/06 SC 12/06 1901 2102 Potassium Chloride 10 MEQ ONCE ONE 12/07 1000 CAN IV 12/07 1001 Potassium Chloride 40 MEQ ONCE ONE 12/07 1000 DC 12/07 PO 12/07 1001 1042 Sodium Chloride 1,000 ML Q6H 12/07 0700 DC 12/07 IV 12/07 1859 0703 Sodium Chloride 1,000 ML BOLUS ONE 12/06 1645 DC 12/06 IV 12/06 1744 1640 Sodium Chloride 1,000 ML Q6H 12/06 1645 DC 12/06 IV 12/07 0444 2329 Sodium Chloride 1,000 ML ONCE ONE 12/06 1630 CAN IV 12/07 0229 Thiamine HCl 100 MG DAILY 12/07 1000 AC 12/07 Sodium Chloride 50 ML IV 12/08 1059 1044 Thiamine HCl 200 MG ONCE ONE 12/06 1930 DC 12/06 Sodium Chloride 100 ML IV 12/06 1959 2109 Thiamine HCl 200 MG ONCE ONE 12/06 1900 CAN Sodium Chloride 50 ML IV 12/06 2000 Antibiotics Antibiotic: ceftriaxone Day #: 2 IV/PO? IV US Findings: on 12/06/17 IMPRESSION: 1. There is generalized increase in hepatic echotexture, consistent with fatty infiltration or hepatocellular disease. Please correlate clinically. No focal hepatic mass or intrahepatic biliary dilatation is seen. 2. Limited ultrasound examination of the pancreas due to overlapping bowel gas. Impression/Plan Impression/Problem List Impression: Patient is a 52 YO F with long standing cirrhosis with portal gastropathy, hepatitis C, alcoholism, hypertension, thrombocytopenia, anxiety, morbid obesity , presented to the emergency department with complaints of nausea, hematemesis and black-colored stool Problem list 1. Grade 2 Variceal bleeding s/p band ligation 2. Acute blood loss anemia 3. Thrombocytopenia 4. Chronic Hep C and alcoholism Plan Respiratory Stable on room air Infectious 1. Prophylaxis for variceal bleed Typically antibiotics (IV ceftriaxone) given till 3 days after resolution of bleed given high risk of SBP. She had a Temp of 100.4 overnight. Otherwise remains stable. * Continue IV ceftriaxone for a total of 3days Cardiology 1. HTN She was on HCTZ/losartan 12.5/50mg daily. In general Cirrhosis patient slowly become normotensive f/b hypotensive. We will hold antihypertensives for now. Will consider depending on blood pressure. * Off antihypertensives and fluids * Monitor for blood pressure. Heme/onc 1. Acute blood loss anemia Patient presented with variceal bleed in the setting of portal gastropathy. Underwent endoscopy with band ligation. * s/p 1 unit PRBC transfusion - H&H remained stable around 8 now. * Goal around 7 given restrictive transfusion benefits (not to engorge veins). * CBC Q6hrs 2. Coagulopathic Given cirrhosis, she had an INR of 2 yesterday. A single dose of FFP given prior to endoscopy. She remained at INR of 2 today. * Continue to monitor * If central line needed, will given additional FFP dose. 3. Thrombocytopenia Cirrhotic tend to have low platelet ocunts due to low thorombopoietin and platelet sequestration. She did have a platelet count of 100 at admission * Platelet count 77 today * Mechanical prophylaxis Metabolic 1. Electrolytemia Hypokalemia & hypomagnesemia - Repleted. Goal K>4, Mag >2 * Continue to monitor 2. Alcohol withdrawl On CIWA protocol. Scores trended down to -0. * continue IV thiamin, multivitamin. Alimentary 1. NPO after endoscopy. Stable so far. * started on clear liquid diet 2. Cirrhosis She has a history of chronic hepC treated in the remotely with pegylated interferon and ribavirin without response. Last EGD in by Dr. Aren Grullon. At that time she was found to have mild portal hypertensive gastropathy & grade 1 distal esophageal varices but no gastric varices. At that time he started her on propranolol. Remained abstinent from alcohol but did have 2 drinks last weekend. Apparently noncompliant with labs and medications ( did not take propranolol or PPI prescribed). * Continue Octreotide drip * Hold off protonix drip given limited peripheral access * If becomes hemodynamically unstable, Plan for Central venous catheter. ( consent obtained). * AFP and Hep C viral load requested. Last time checked in 2009 - AFP of 40, viral load of 4,370,000 at that time. 3. Hyperbilirubinemia Total bilirubin of 3.2 with direct bili of 2.1. Attributable to hep C and bleeding. * Trend it for now * IV ceftriaxone can also have an effect if trends up. Neuro: Intact and nonfocal DVT prophylaxis ALPS Code status full code. Problem List: 1. Cirrhosis 2. Varices, esophageal 3. GI bleed 4. Hepatitis C 5. Alcoholic cirrhosis 6. Hyperbilirubinemia Pain Ratin Pain Goal: Pain 4 or less Pain Plan: tramadol Tomorrow's Labs & Rationales: cbc ICU bundle Plan DVT/Prophylaxis: mechanical Selvin Iverson MD 12/07/17 1213: Attending MD Review Statement Attending Sign Off Attending Cosign Statement: I have: examined this patient, reviewed [facility] EMR data, discussd w/resident/PA/ INSPECTION MANAGER, agreed w/resident/PA/INSPECTION MANAGER. Other Findings: Ms. Nichols is a 52-year-old female with long standing cirrhosis with portal gastropathy, hepatitis C, alcoholism, hypertension, thrombocytopenia, anxiety, morbid obesity, presented to the emergency department with complaints of nausea, hematemesis and black-colored stool Assessment 1. Hematemesis and melena with underlying cirrhosis - UGI bleeding source - EGD showed varices that were banded 2. Acute blod loss anemia 4. Alcoholism 4. Chronic hepatitis C Plan 1. Continue with IV protonix infusion, vitamin K and FFP if active bleeding 2. IV Ceftriaxone 1 g to be administered. Continue with IV protonix and octreotide infusion 3. Hb and Hct to be repeated Q 4 hrly as per GI 4. Ceftriaxone 1 g IV given for prophylaxis and high risk of infection in these patients
[2017-12-07 10:34] LABS: ABSOLUTE BASOPHIL COUNT 0.1 /CUMM (0.0-0.2); ABSOLUTE EOSINOPHIL COUNT 0.2 /CUMM (0.0-0.7); ABSOLUTE GRANULOCYTE CT 4.7 /CUMM (1.4-6.5); ABSOLUTE MONOCYTE COUNT 0.5 /CUMM (0.10-0.60); BASOPHIL % 0.7 % (0.0-2.0); EOSINOPHIL % 2.9 % (0-5); HEMATOCRIT 26.4 % (37-47); MEAN CORPUSCULAR HGB 28.1 PG (27.0-31.0); MEAN CORPUSCULAR HGB CONC 31.8 G/DL (33.0-37.0); MEAN CORPUSCULAR VOLUME 88.4 FL (81.0-99.0); MEAN PLATELET VOLUME 8.9 FL (7.4-10.4); RBC DISTRIBUTION WIDTH 17.5 % (11.5-14.5); RED BLOOD CELL CT 2.98 /CUMM (4.20-5.40); WHITE BLOOD CELL COUNT 7.4 /CUMM (4.8-10.8)
[2017-12-07 10:38] LABS: PLATELET COUNT 77 /CUMM (130-400)
[2017-12-07 16:34] LABS: ABSOLUTE BASOPHIL COUNT 0 /CUMM (0.0-0.2); ABSOLUTE EOSINOPHIL COUNT 0.3 /CUMM (0.0-0.7); ABSOLUTE GRANULOCYTE CT 3.7 /CUMM (1.4-6.5); ABSOLUTE LYMPH COUNT 2.3 /CUMM (1.2-3.4); ABSOLUTE MONOCYTE COUNT 0.4 /CUMM (0.10-0.60); BASOPHIL % 0.6 % (0.0-2.0); EOSINOPHIL % 4.4 % (0-5); GRANULOCYTE % 54.6 % (42.2-75.2); HEMATOCRIT 23.3 % (37-47); MEAN CORPUSCULAR HGB 28.8 PG (27.0-31.0); MEAN CORPUSCULAR HGB CONC 32.8 G/DL (33.0-37.0); MEAN CORPUSCULAR VOLUME 87.8 FL (81.0-99.0); MEAN PLATELET VOLUME 9.2 FL (7.4-10.4); PLATELET COUNT 65 /CUMM (130-400); RBC DISTRIBUTION WIDTH 17.7 % (11.5-14.5); RED BLOOD CELL CT 2.65 /CUMM (4.20-5.40); WHITE BLOOD CELL COUNT 6.7 /CUMM (4.8-10.8)
--- NOTE | 2017-12-07 17:27 | PN- Gastroenterology ---
Assessment/Plan GI Assessment/Recommendations: ASSESSMENT: 1. Acute blood loss anemia. H&H stable. 2. Esophageal varices with hemorrhage. None further 3. Cirrhosis due to chronic hepatitis C and alcohol abuse. 4. Thrombocytopenia and coagulopathy due to #3 5. Alcohol abuse. I discussed with patient that she may benefit from inpatient alcohol abstinence program. She said that she agreed that this might be of help to her as she has never participated in any formal abstinence program. RECOMMENDATIONS: 1. Decrease frequency of serial H&H to every 8 hours. 2. Advance diet to full liquids and then gradually to regular diet. 3. Continue octreotide for at least another 24 hours. 4. Consider social work evaluation for referral to alcohol treatment program 5. I discussed with patient that she will need repeat EGD in 2 weeks for possible repeat banding of esophageal varices. 6. I've also told patient that she will need treatment for her hepatitis C. I' ve explained to her also that both her obesity as well as for alcohol abuse magnified the effect of hepatitis C on the liver and that losing weight and stopping drinking will help prevent progression of her end-stage liver disease and may even result in some improvement in her current liver function. Subjective Subjective: Patient is tolerating clear liquid diet. Has had no further melena. He had asked to speak with me in private without her or mother present. Admits to ongoing alcohol use in excess of what she had described on admission. She reports that she "knows what she has to do now." She has no nausea vomiting or abdominal pain. She has had no fever or shaking chills. Review of Systems Constitutional: Denies: chills, fever. Respiratory: Denies: short of breath. Gastrointestinal: Denies: abdominal pain, melena, nausea, bloody stool. Neurological/Psychological: Reports: no symptoms. Objective Vital Signs and I&Os Vital Signs Date Time Temp Pulse Resp B/P B/P Pulse O2 O2 Flow FiO2 Mean Ox Delivery Rate 12/07 1600 99.0 84 20 126/70 12/07 1600 96 Room Air 12/07 1600 99.0 84 20 126/70 98 Room Air 12/07 1400 99.0 84 19 108/48 12/07 1200 98.0 90 21 125/66 12/07 1200 95 Room Air 12/07 1000 98.0 86 18 119/52 12/07 0800 97.7 98 12 108/72 12/07 0800 98 Room Air 12/07 0800 97.7 98 12 108/72 98 Room Air 12/07 0600 99.3 98 24 123/70 12/07 0400 99.3 92 24 144/77 12/07 0200 99.3 109 24 102/69 12/07 0000 99.3 104 24 121/63 12/06 2200 100.4 109 20 104/61 12/06 2200 99.3 104 24 121/63 98 Room Air 12/06 2000 100.4 114 24 93/55 12/06 2000 100 Nasal 2.0L Cannula 12/06 1803 99.0 110 16 107/57 12/06 1721 99.5 112 17 104/65 99 Room Air Intake & Output 12/07 1600 12/07 0400 12/06 1600 12/06 0400 12/05 1600 12/05 0400 Intake Total 3066 2260 Output Total Balance 3066 2260 Intake, Blood 350 250 Product Intake, IV 2596 2010 Intake, Oral 120 Number 5 2 Bowel Movements Patient 235 lb 235 lb Weight Weight Reported by Patient Reported by Patient Measurement Method Physical Exam General Appearance: well developed/nourished, alert, awake Head: atraumatic, normal appearance Respiratory: normal breath sounds, lungs clear Cardiovascular: regular rate/rhythm, normal S1 and S2 without rub murmur or gallop Abdomen: normal bowel sounds, soft, non-tender, no organomegaly Extremities: normal inspection, no edema Neurologic/Psychiatric: no motor/sensory deficits, awake, alert, oriented x 3 Skin: intact, normal color, warm/dry Current Medications: Current Medications Sig/Param Start time Last Medication Dose Route Stop Time Status Admin Benzocaine/Menthol 1 TORSTEN Q2P PRN 12/07 1000 AC 12/07 PO 1041 Ceftriaxone Sodium 1,000 MG Q24H 12/07 1400 AC 12/07 IV 12/09 1999 142 Erythromycin 250 MG ONE ONE 12/06 1900 DC 12/06 Sodium Chloride 100 ML IV 12/06 Lorazepam 0 Q1P PRN 12/06 2030 AC 12/06 IV 211 Magnesium Chloride 64 MG BID 12/07 1000 AC 12/07 PO 12/08 0300 1041 Magnesium Sulfate 1 GM Q2H 12/07 0945 DC Dextrose/Water 100 ML IV 12/07 1344 Multivitamins 1 DAMASO DAILY 12/07 1000 AC 12/07 Sodium Chloride 500 ML IV 1044 Multivitamins 1 DAMASO ONCE ONE 12/06 1900 DC 12/06 Sodium Chloride 500 ML IV 12/06 2259 2109 Octreotide Acetate 500 MCG Q10H 12/06 1315 AC 12/07 Sodium Chloride 500 ML IV 0952 Pantoprazole Sodium 40 MG Q5H 12/06 1730 DC 12/07 Sodium Chloride 100 ML IV 0952 Phytonadione 5 MG ONE ONE 12/06 1900 DC 12/06 SC 12/06 1901 2102 Potassium Chloride 10 MEQ ONCE ONE 12/07 1000 CAN IV 12/07 1001 Potassium Chloride 40 MEQ ONCE ONE 12/07 1000 DC 12/07 PO 12/07 1001 1042 Sodium Chloride 1,000 ML Q6H 12/07 0700 DC 12/07 IV 12/07 1859 0703 Sodium Chloride 1,000 ML BOLUS ONE 12/06 1645 DC 12/06 IV 12/06 1744 1640 Sodium Chloride 1,000 ML Q6H 12/06 1645 DC 12/06 IV 12/07 0444 2329 Thiamine HCl 100 MG DAILY 12/07 1000 AC 12/07 Sodium Chloride 50 ML IV 12/08 1059 1044 Thiamine HCl 200 MG ONCE ONE 12/06 1930 DC 12/06 Sodium Chloride 100 ML IV 12/06 1959 2109 Thiamine HCl 200 MG ONCE ONE 12/06 1900 CAN Sodium Chloride 50 ML IV 12/06 2000 Results Pertinent Lab Results: Laboratory Tests 12/07 12/07 1530 1010 Hematology CBC w Diff NO MAN DIFF REQ NO MAN DIFF REQ WBC (4.8 - 10.8 /CUMM) 6.7 7.4 RBC (4.20 - 5.40 /CUMM) 2.65 L 2.98 L Hgb (12.0 - 16.0 G/DL) 7.6 L 8.4 L Hct (37 - 47 %) 23.3 L 26.4 L MCV (81.0 - 99.0 FL) 87.8 88.4 MCH (27.0 - 31.0 PG) 28.8 28.1 MCHC (33.0 - 37.0 G/DL) 32.8 L 31.8 L RDW (11.5 - 14.5 %) 17.7 H 17.5 H Plt Count (130 - 400 /CUMM) 65 L 77 L MPV (7.4 - 10.4 FL) 9.2 8.9 Gran % (42.2 - 75.2 %) 54.6 63.0 Lymphocytes % (20.5 - 51.1 %) 34.0 27.1 Monocytes % (1.7 - 9.3 %) 6.4 6.3 Eosinophils % (0 - 5 %) 4.4 2.9 Basophils % (0.0 - 2.0 %) 0.6 0.7 Absolute Granulocytes (1.4 - 6.5 /CUMM) 3.7 4.7 Absolute Lymphocytes (1.2 - 3.4 /CUMM) 2.3 2.0 Absolute Monocytes (0.10 - 0.60 /CUMM) 0.4 0.5 Absolute Eosinophils (0.0 - 0.7 /CUMM) 0.3 0.2 Absolute Basophils (0.0 - 0.2 /CUMM) 0 0.1 12/07 12/07 0608 0608 Chemistry Sodium (137 - 145 mmol/L) 143 Potassium (3.5 - 5.1 mmol/L) 3.8 Chloride (98 - 107 mmol/L) 109 H Carbon Dioxide (22 - 30 mmol/L) 28 Anion Gap (5 - 16) 6 BUN (7 - 17 mg/dL) 33 H Creatinine (0.5 - 1.0 mg/dL) 0.7 Estimated GFR (>60 ml/min) > 60 Glucose (65 - 99 mg/dL) 97 Calcium (8.4 - 10.2 mg/dL) 7.4 L Phosphorus (2.5 - 4.5 mg/dL) 2.9 Magnesium (1.6 - 2.3 mg/dL) 1.5 L Total Bilirubin (0.2 - 1.3 mg/dL) 3.2 H AST (14 - 36 U/L) 121 H ALT (9 - 52 U/L) 75 H Albumin (3.5 - 5.0 g/dL) 2.1 L Alpha Fetoprotein Pending Coagulation PT (9.4 - 12.5 SEC) 21.9 H INR (0.90 - 1.19) 2.00 H Hematology CBC w Diff NO MAN DIFF REQ WBC (4.8 - 10.8 /CUMM) 8.1 RBC (4.20 - 5.40 /CUMM) 2.72 L Hgb (12.0 - 16.0 G/DL) 7.7 L Hct (37 - 47 %) 23.7 L MCV (81.0 - 99.0 FL) 87.2 MCH (27.0 - 31.0 PG) 28.5 MCHC (33.0 - 37.0 G/DL) 32.7 L RDW (11.5 - 14.5 %) 17.8 H Plt Count (130 - 400 /CUMM) 68 L MPV (7.4 - 10.4 FL) 9.6 Gran % (42.2 - 75.2 %) 58.5 Lymphocytes % (20.5 - 51.1 %) 31.7 Monocytes % (1.7 - 9.3 %) 7.5 Eosinophils % (0 - 5 %) 1.8 Basophils % (0.0 - 2.0 %) 0.5 Absolute Granulocytes (1.4 - 6.5 /CUMM) 4.8 Absolute Lymphocytes (1.2 - 3.4 /CUMM) 2.6 Absolute Monocytes (0.10 - 0.60 /CUMM) 0.6 Absolute Eosinophils (0.0 - 0.7 /CUMM) 0.1 Absolute Basophils (0.0 - 0.2 /CUMM) 0 12/065 1999 Hematology CBC w Diff NO MAN DIFF REQ Cancelled WBC (4.8 - 10.8 /CUMM) 8.8 Cancelled RBC (4.20 - 5.40 /CUMM) 2.35 L Cancelled Hgb (12.0 - 16.0 G/DL) 6.7 *L Cancelled Hct (37 - 47 %) 20.1 L Cancelled MCV (81.0 - 99.0 FL) 85.5 Cancelled MCH (27.0 - 31.0 PG) 28.4 Cancelled MCHC (33.0 - 37.0 G/DL) 33.2 Cancelled RDW (11.5 - 14.5 %) 18.2 H Cancelled Plt Count (130 - 400 /CUMM) 78 L Cancelled MPV (7.4 - 10.4 FL) 9.6 Cancelled Gran % (42.2 - 75.2 %) 61.3 Lymphocytes % (20.5 - 51.1 %) 29.0 Monocytes % (1.7 - 9.3 %) 9.0 Eosinophils % (0 - 5 %) 0.4 Basophils % (0.0 - 2.0 %) 0.3 Absolute Granulocytes (1.4 - 6.5 /CUMM) 5.4 Absolute Lymphocytes (1.2 - 3.4 /CUMM) 2.6 Absolute Monocytes (0.10 - 0.60 /CUMM) 0.8 H Absolute Eosinophils (0.0 - 0.7 /CUMM) 0 Absolute Basophils (0.0 - 0.2 /CUMM) 0 12/06 12/06 1654 1314 Coagulation PT (9.4 - 12.5 SEC) 22.4 H INR (0.90 - 1.19) 2.04 H Hematology CBC w Diff NO MAN DIFF REQ WBC (4.8 - 10.8 /CUMM) 10.7 RBC (4.20 - 5.40 /CUMM) 3.06 L Hgb (12.0 - 16.0 G/DL) 8.6 L Hct (37 - 47 %) 26.1 L MCV (81.0 - 99.0 FL) 85.2 MCH (27.0 - 31.0 PG) 28.2 MCHC (33.0 - 37.0 G/DL) 33.1 RDW (11.5 - 14.5 %) 17.8 H Plt Count (130 - 400 /CUMM) 109 L MPV (7.4 - 10.4 FL) 9.9 Gran % (42.2 - 75.2 %) 74.8 Lymphocytes % (20.5 - 51.1 %) 17.7 L Monocytes % (1.7 - 9.3 %) 6.7 Eosinophils % (0 - 5 %) 0.1 Basophils % (0.0 - 2.0 %) 0.7 Absolute Granulocytes (1.4 - 6.5 /CUMM) 8.0 H Absolute Lymphocytes (1.2 - 3.4 /CUMM) 1.9 Absolute Monocytes (0.10 - 0.60 /CUMM) 0.7 H Absolute Eosinophils (0.0 - 0.7 /CUMM) 0 Absolute Basophils (0.0 - 0.2 /CUMM) 0.1 12/06 1023 Chemistry Sodium (137 - 145 mmol/L) 138 Potassium (3.5 - 5.1 mmol/L) 4.1 Chloride (98 - 107 mmol/L) 103 Carbon Dioxide (22 - 30 mmol/L) 27 Anion Gap (5 - 16) 8 BUN (7 - 17 mg/dL) 35 H Creatinine (0.5 - 1.0 mg/dL) 0.7 Estimated GFR (>60 ml/min) > 60 BUN/Creatinine Ratio (7 - 25 %) 50.0 H Glucose (65 - 99 mg/dL) 111 H Calcium (8.4 - 10.2 mg/dL) 8.7 Total Bilirubin (0.2 - 1.3 mg/dL) 3.8 H Direct Bilirubin (< 0.4 mg/dL) 2.1 H AST (14 - 36 U/L) 134 H ALT (9 - 52 U/L) 79 H Alkaline Phosphatase (<127 U/L) 140 H Total Protein (6.3 - 8.2 g/dL) 6.1 L Albumin (3.5 - 5.0 g/dL) 2.7 L Globulin (1.9 - 4.2 gm/dL) 3.4 Albumin/Globulin Ratio (1.1 - 2.2 %) 0.8 L Amylase (30 - 110 U/L) 64 Lipase (23 - 300 U/L) 130 Hematology CBC w Diff NO MAN DIFF REQ WBC (4.8 - 10.8 /CUMM) 8.5 RBC (4.20 - 5.40 /CUMM) 3.41 L Hgb (12.0 - 16.0 G/DL) 9.6 L Hct (37 - 47 %) 28.9 L MCV (81.0 - 99.0 FL) 84.9 MCH (27.0 - 31.0 PG) 28.0 MCHC (33.0 - 37.0 G/DL) 33.0 RDW (11.5 - 14.5 %) 18.5 H Plt Count (130 - 400 /CUMM) 100 L MPV (7.4 - 10.4 FL) 9.9 Gran % (42.2 - 75.2 %) 82.1 H Lymphocytes % (20.5 - 51.1 %) 12.1 L Monocytes % (1.7 - 9.3 %) 5.5 Eosinophils % (0 - 5 %) 0 Basophils % (0.0 - 2.0 %) 0.3 Absolute Granulocytes (1.4 - 6.5 /CUMM) 7.0 H Absolute Lymphocytes (1.2 - 3.4 /CUMM) 1.0 L Absolute Monocytes (0.10 - 0.60 /CUMM) 0.5 Absolute Eosinophils (0.0 - 0.7 /CUMM) 0 Absolute Basophils (0.0 - 0.2 /CUMM) 0
[2017-12-08] VITALS (8 sets, daily range): BP systolic 100–140; BP diastolic 54–80
[2017-12-08 00:16] LABS: ABSOLUTE BASOPHIL COUNT 0 /CUMM (0.0-0.2); ABSOLUTE EOSINOPHIL COUNT 0.3 /CUMM (0.0-0.7); ABSOLUTE GRANULOCYTE CT 3.2 /CUMM (1.4-6.5); ABSOLUTE MONOCYTE COUNT 0.5 /CUMM (0.10-0.60); BASOPHIL % 0.6 % (0.0-2.0); EOSINOPHIL % 5.1 % (0-5); GRANULOCYTE % 53.4 % (42.2-75.2); HEMATOCRIT 22.9 % (37-47); MEAN CORPUSCULAR HGB 28.9 PG (27.0-31.0); MEAN CORPUSCULAR HGB CONC 33.1 G/DL (33.0-37.0); MEAN CORPUSCULAR VOLUME 87.4 FL (81.0-99.0); MEAN PLATELET VOLUME 8.7 FL (7.4-10.4); PLATELET COUNT 63 /CUMM (130-400); RBC DISTRIBUTION WIDTH 17.1 % (11.5-14.5); RED BLOOD CELL CT 2.62 /CUMM (4.20-5.40)
[2017-12-08 05:32] LABS: ABSOLUTE BASOPHIL COUNT 0 /CUMM (0.0-0.2); ABSOLUTE EOSINOPHIL COUNT 0.5 /CUMM (0.0-0.7); ABSOLUTE LYMPH COUNT 2.7 /CUMM (1.2-3.4); ABSOLUTE MONOCYTE COUNT 0.6 /CUMM (0.10-0.60); BASOPHIL % 0.6 % (0.0-2.0); GRANULOCYTE % 50.9 % (42.2-75.2); HEMATOCRIT 25.1 % (37-47); MEAN CORPUSCULAR HGB 28.7 PG (27.0-31.0); MEAN CORPUSCULAR HGB CONC 32.5 G/DL (33.0-37.0); MEAN CORPUSCULAR VOLUME 88.5 FL (81.0-99.0); MEAN PLATELET VOLUME 8.9 FL (7.4-10.4); PLATELET COUNT 79 /CUMM (130-400); RBC DISTRIBUTION WIDTH 17.4 % (11.5-14.5); RED BLOOD CELL CT 2.84 /CUMM (4.20-5.40); WHITE BLOOD CELL COUNT 7.8 /CUMM (4.8-10.8)
--- NOTE | 2017-12-08 07:31 | PN- Resident CRCU ---
Jose CRYSTAL,Juarez 12/08/17 0730: Subjective HPI/CRCU Issues: Patient is still in ICU requiring close monitoring for GI bleeding. I followed up and examined the patient today. She is resting comfortably in bed , tolerating her full liquid diet without nausea or vomiting. See has not had any bowel movement since her admission. She does not feel any shortness of breath, chest pain, dizziness, fatigued. No nursing issues reported to me either. VSS. Objective Vital Signs & I&O Last 8 Hrs of Vitals and I&O: Vital Signs Date Time Temp Pulse Resp B/P B/P Pulse O2 O2 Flow FiO2 Mean Ox Delivery Rate 12/08 1600 98.4 70 24 128/70 96 Room Air 12/08 0800 98.4 70 24 100/64 98 Part ReBreather 12/08 0600 98.2 70 20 119/59 12/08 0356 98.9 80 16 107/59 12/08 0210 98.9 86 16 111/54 12/08 0000 98.9 80 18 140/68 12/08 0000 98.9 80 18 140/65 98 Room Air 12/07 2200 99.2 77 18 133/62 12/07 2000 99.2 79 20 120/60 Intake & Output 12/08 1600 12/08 0800 12/08 0000 Intake Total 1310 640 770 Output Total 800 300 200 Balance 510 340 570 Intake, IV 950 400 400 Intake, Oral 360 240 370 Number 1 1 Bowel Movements Output, Urine 800 300 200 Exam General Appearance: no apparent distress, alert, awake, comfortable, obese Other Physical Findings: Head: Normocephalic, atraumatic Eyes: Pupils normal in size, regular, reacting to light and accommodation, EOM normal, icterus+ Throat/mouth: Moist mucosa Neck: Supple, full range of motion Heart: Regular rate, regular rhythm, tachycardia Lung: Normal breath sound bilaterally Added sound not heard Abd: Soft, non-tender, no distention appreciated Extremities: Normal knee exam bilaterally, b/l trace pedal edema, Distal neurovascular intact Neurologic: grossly intact Skin: Warm and dry, no bruises Current Medications: Current Medications Sig/Param Start time Last Medication Dose Route Stop Time Status Admin Benzocaine/Menthol 1 TORSTEN Q2P PRN 12/07 1000 AC 12/07 PO 1041 Ceftriaxone Sodium 1,000 MG Q24H 12/07 1400 AC 12/07 IV 12/08 2000 1422 Lorazepam 0 Q1P PRN 12/06 2030 AC 12/07 IV 2202 Magnesium Chloride 64 MG BID 12/07 1000 DC 12/07 PO 12/08 0300 2148 Magnesium Sulfate 1 GM Q2H 12/07 0945 DC Dextrose/Water 100 ML IV 12/07 1344 Multivitamins 1 DAMASO DAILY 12/07 1000 AC 12/07 Sodium Chloride 500 ML IV 1044 Octreotide Acetate 500 MCG Q10H 12/06 1315 AC 12/08 Sodium Chloride 500 ML IV 0659 Pantoprazole Sodium 40 MG Q5H 12/06 1730 DC 12/07 Sodium Chloride 100 ML IV 0952 Phenol 2 SPRAY Q2P PRN 12/07 1945 AC 12/07 EXT 2028 Potassium Chloride 10 MEQ ONCE ONE 12/07 1000 CAN IV 12/07 1001 Potassium Chloride 40 MEQ ONCE ONE 12/07 1000 DC 12/07 PO 12/07 1001 1042 Sodium Chloride 1,000 ML Q6H 12/07 0700 DC 12/07 IV 12/07 1859 0703 Thiamine HCl 100 MG DAILY 12/07 1000 AC 12/07 Sodium Chloride 50 ML IV 12/08 1059 1044 Impression/Plan Impression/Problem List Impression: 52-year-old female with past medical history of cirrhosis (since 1996) with hemorrhagic gastropathy secondary to portal hypertension and grade 1 esophageal varices, hepatitis C (since 1996), alcohol abuse, hypertension, thrombocytopenia , anxiety, morbid obesity, presented to the emergency department with complaints of black-colored stool, and blood in vomitus. Patient's vital parameters in the emergency department was suggestive of volume depletion, and also had active ongoing episodes of black stools and bloody vomitus thus was admitted in the ICU for the management of following issues: # Acute blood loss anemia, secondary to GI bleeding Patient's history of cirrhosis, hepatitis C, thrombocytopenia, alcohol abuse, possibly serves as a background for her acute episode of black tarry stool and bloody vomitus, made GI bleeding the most likely diagnosis. She was adequately volume resuscitated, and an upper GI endoscopy was performed which demonstrated grade 2 esophageal varices and banding was done then and there. Patient has not had any episodes of melena or nausea/vomiting after that. IV fluids, IV PPI infusion, IV octreotide infusion, IV ceftriaxone still continuing. * Would continue to monitor her in ICU until she has IV Octeotride ip which she probably can be transferred to a general medical floor. * We'll try to advance her diet and watch for any signs of nausea vomiting or GI bleeding. * CBC every 12 hours * GI consultation with Dr. Blake appreciated. #Hypertension Will hold her antihypertensive medications for now. We'll have to restart before her discharge. #Diet: Full liquid diet for now. #DVT ppx: ALPS only (bleeding) #Code status: Full code Problem List: 1. Varices, esophageal 2. GI bleed Pain Ratin Pain Location: abd central part, on/ off Tomorrow's Labs & Rationales: CBC, LFT, INR Plan DVT/Prophylaxis: shayy Jaimes MD,Ana M 12/08/17 1445: Attending MD Review Statement Attending Sign Off Attending Cosign Statement: I have: examined this patient, reviewed [facility] EMR data, personally reviewd images, discussd w/resident/PA/JOURNAL CLERK, discussed mgmt plan w/daphne, discussed mgmt plan w/pt, agreed w/resident/PA/JOURNAL CLERK, amended to note. Other Findings: Patient seen and examined, she was feeling dizzy. She denies any pain. No further episodes of nausea or hematemesis. Patient remains on octreotide drip. Vital Signs Date Time Temp Pulse Resp B/P B/P Pulse O2 O2 Flow FiO2 Mean Ox Delivery Rate 12/08 0800 98.4 70 24 100/64 98 Part ReBreather 12/08 0600 98.2 70 20 119/59 12/08 0356 98.9 80 16 107/59 12/08 0210 98.9 86 16 111/54 12/08 0000 98.9 80 18 140/68 12/08 0000 98.9 80 18 140/65 98 Room Air 12/07 2200 99.2 77 18 133/62 12/07 2000 99.2 79 20 120/60 12/07 1600 99.0 84 20 126/70 12/07 1600 96 Room Air 12/07 1600 99.0 84 20 126/70 98 Room Air on exam; aox3, nad. cv; s1, s2, rrr resp; clear abd; soft, nt, bs+ ext; no edema. Laboratory Tests 12/08 12/08 0930 0500 Chemistry Sodium (137 - 145 mmol/L) 143 Potassium (3.5 - 5.1 mmol/L) 3.6 Chloride (98 - 107 mmol/L) 108 H Carbon Dioxide (22 - 30 mmol/L) 27 Anion Gap (5 - 16) 8 BUN (7 - 17 mg/dL) 24 H Creatinine (0.5 - 1.0 mg/dL) 0.8 Estimated GFR (>60 ml/min) > 60 Glucose (65 - 99 mg/dL) 78 Calcium (8.4 - 10.2 mg/dL) 7.2 L Phosphorus (2.5 - 4.5 mg/dL) 2.6 Magnesium (1.6 - 2.3 mg/dL) 1.7 Total Bilirubin (0.2 - 1.3 mg/dL) 2.5 H Direct Bilirubin (< 0.4 mg/dL) 1.6 H AST (14 - 36 U/L) 208 H ALT (9 - 52 U/L) 100 H Alkaline Phosphatase (<127 U/L) 83 Total Protein (6.3 - 8.2 g/dL) 5.4 L Albumin (3.5 - 5.0 g/dL) 2.2 L Coagulation PT (9.4 - 12.5 SEC) 18.7 H INR (0.90 - 1.19) 1.71 H Hematology CBC w Diff NO MAN DIFF REQ WBC (4.8 - 10.8 /CUMM) 7.8 RBC (4.20 - 5.40 /CUMM) 2.84 L Hgb (12.0 - 16.0 G/DL) 8.2 L Hct (37 - 47 %) 25.1 L MCV (81.0 - 99.0 FL) 88.5 MCH (27.0 - 31.0 PG) 28.7 MCHC (33.0 - 37.0 G/DL) 32.5 L RDW (11.5 - 14.5 %) 17.4 H Plt Count (130 - 400 /CUMM) 79 L MPV (7.4 - 10.4 FL) 8.9 Gran % (42.2 - 75.2 %) 50.9 Lymphocytes % (20.5 - 51.1 %) 35.2 Monocytes % (1.7 - 9.3 %) 7.3 Eosinophils % (0 - 5 %) 6.0 H Basophils % (0.0 - 2.0 %) 0.6 Absolute Granulocytes (1.4 - 6.5 /CUMM) 4.0 Absolute Lymphocytes (1.2 - 3.4 /CUMM) 2.7 Absolute Monocytes (0.10 - 0.60 /CUMM) 0.6 Absolute Eosinophils (0.0 - 0.7 /CUMM) 0.5 Absolute Basophils (0.0 - 0.2 /CUMM) 0 Serology HCV RNA (PCR) IUs/ml Pending HCV RNA PCR log IUs/ml Pending 12/07 12/07 3286 1530 Chemistry Potassium (3.5 - 5.1 mmol/L) 3.6 Magnesium (1.6 - 2.3 mg/dL) 1.6 Hematology CBC w Diff NO MAN DIFF REQ NO MAN DIFF REQ WBC (4.8 - 10.8 /CUMM) 6.0 6.7 RBC (4.20 - 5.40 /CUMM) 2.62 L 2.65 L Hgb (12.0 - 16.0 G/DL) 7.6 L 7.6 L Hct (37 - 47 %) 22.9 L 23.3 L MCV (81.0 - 99.0 FL) 87.4 87.8 MCH (27.0 - 31.0 PG) 28.9 28.8 MCHC (33.0 - 37.0 G/DL) 33.1 32.8 L RDW (11.5 - 14.5 %) 17.1 H 17.7 H Plt Count (130 - 400 /CUMM) 63 L 65 L MPV (7.4 - 10.4 FL) 8.7 9.2 Gran % (42.2 - 75.2 %) 53.4 54.6 Lymphocytes % (20.5 - 51.1 %) 32.8 34.0 Monocytes % (1.7 - 9.3 %) 8.1 6.4 Eosinophils % (0 - 5 %) 5.1 H 4.4 Basophils % (0.0 - 2.0 %) 0.6 0.6 Absolute Granulocytes (1.4 - 6.5 /CUMM) 3.2 3.7 Absolute Lymphocytes (1.2 - 3.4 /CUMM) 2.0 2.3 Absolute Monocytes (0.10 - 0.60 /CUMM) 0.5 0.4 Absolute Eosinophils (0.0 - 0.7 /CUMM) 0.3 0.3 Absolute Basophils (0.0 - 0.2 /CUMM) 0 0 A/P: 52 y/o F with pmh sig for cirrhosis (since 1996) with hemorrhagic gastropathy secondary to portal hypertension and grade 1 esophageal varices, hepatitis C (since 1996), alcohol abuse, hypertension, thrombocytopenia, anxiety , admitted with GI bleed, acute blood loss anemia, s/p EGD with band ligation of esophageal varices. Remains on octreotide drip. H&H stable. Further episodes of emesis. Patient's diet will be advanced slowly as per GI. Remains on octreotide drip for another 24 hours. Continue other current medications. Patient should stay in ICU at least for another 24 hours.
--- NOTE | 2017-12-08 10:22 | PN- Gastroenterology ---
Assessment/Plan GI Assessment/Recommendations: ASSESSMENT: 1. Cirrhosis. Multifactorial due to hepatitis C and alcohol abuse. 2. Acute blood loss anemia due to esophageal varices with hemorrhage 3. Thrombocytopenia and coagulopathy RECOMMENDATIONS: 1. Continue octreotide for another 24 hours 2. Advance diet to full liquids and then mechanical soft if full liquids are tolerated 3. Repeat PT/INR Subjective Subjective: Patient without nausea vomiting or abdominal pain complaints of mild substernal discomfort. Is tolerating advance diet. Small dark stool today. No shortness of breath. Objective Vital Signs and I&Os Vital Signs Date Time Temp Pulse Resp B/P B/P Pulse O2 O2 Flow FiO2 Mean Ox Delivery Rate 12/08 0600 98.2 70 20 119/59 12/08 0356 98.9 80 16 107/59 12/08 0210 98.9 86 16 111/54 12/08 0000 98.9 80 18 140/68 12/08 0000 98.9 80 18 140/65 98 Room Air 12/07 2200 99.2 77 18 133/62 12/07 2000 99.2 79 20 120/60 12/07 1600 99.0 84 20 126/70 12/07 1600 96 Room Air 12/07 1600 99.0 84 20 126/70 98 Room Air 12/07 1400 99.0 84 19 108/48 12/07 1200 98.0 90 21 125/66 12/07 1200 95 Room Air Intake & Output 12/08 1600 12/08 0400 12/07 1600 12/07 0400 12/06 1600 12/06 0400 Intake Total 898 240 7419 2260 Output Total 300 200 Balance 307 962 5129 2260 Intake, Blood 350 250 Product Intake, IV 779 288 5494 2009 Intake, Oral 240 370 120 Number 1 5 2 Bowel Movements Output, Urine 300 200 Patient 235 lb 235 lb Weight Weight Reported by Patient Reported by Patient Measurement Method Physical Exam General Appearance: well developed/nourished, no apparent distress, alert, awake Respiratory: normal breath sounds, chest non-tender, no respiratory distress, lungs clear Cardiovascular: regular rate/rhythm, normal S1 and S2 without rub, murmur, or gallop Abdomen: normal bowel sounds, soft, non-tender, no organomegaly Extremities: no edema Neurologic/Psychiatric: no motor/sensory deficits, awake, alert, oriented x 3 Skin: intact, normal color, warm/dry Current Medications: Current Medications Sig/Param Start time Last Medication Dose Route Stop Time Status Admin Benzocaine/Menthol 1 TORSTEN Q2P PRN 12/07 1000 AC 12/07 PO 1041 Ceftriaxone Sodium 1,000 MG Q24H 12/07 1400 AC 12/07 IV 12/08 2000 1422 Folic Acid 1 MG DAILY 12/09 1000 AC PO Lorazepam 0 Q1P PRN 12/06 2030 AC 12/07 IV 2202 Magnesium Chloride 64 MG BID 12/07 1000 DC 12/07 PO 12/08 0300 2148 Multivitamins 1 TAB DAILY 12/09 1000 AC PO Multivitamins 1 DAMASO DAILY 12/07 1000 AC 12/07 Sodium Chloride 500 ML IV 12/08 2300 1044 Octreotide Acetate 500 MCG Q10H 12/06 1315 AC 12/08 Sodium Chloride 500 ML IV 12/08 1700 0659 Pantoprazole Sodium 40 MG Q5H 12/06 1730 DC 12/07 Sodium Chloride 100 ML IV 0952 Phenol 2 SPRAY Q2P PRN 12/07 1945 AC 12/07 EXT 2028 Sodium Chloride 1,000 ML Q6H 12/07 0700 DC 12/07 IV 12/07 1859 0703 Thiamine HCl 100 MG DAILY 12/09 1000 AC PO Thiamine HCl 100 MG DAILY 12/07 1000 AC 12/07 Sodium Chloride 50 ML IV 12/08 1059 1044 Results Pertinent Lab Results: Laboratory Tests 12/08 12/08 0930 0500 Chemistry Sodium (137 - 145 mmol/L) 143 Potassium (3.5 - 5.1 mmol/L) 3.6 Chloride (98 - 107 mmol/L) 108 H Carbon Dioxide (22 - 30 mmol/L) 27 Anion Gap (5 - 16) 8 BUN (7 - 17 mg/dL) 24 H Creatinine (0.5 - 1.0 mg/dL) 0.8 Estimated GFR (>60 ml/min) > 60 Glucose (65 - 99 mg/dL) 78 Calcium (8.4 - 10.2 mg/dL) 7.2 L Phosphorus (2.5 - 4.5 mg/dL) 2.6 Magnesium (1.6 - 2.3 mg/dL) 1.7 Total Bilirubin (0.2 - 1.3 mg/dL) 2.5 H Direct Bilirubin (< 0.4 mg/dL) 1.6 H AST (14 - 36 U/L) 208 H ALT (9 - 52 U/L) 100 H Alkaline Phosphatase (<127 U/L) 83 Total Protein (6.3 - 8.2 g/dL) 5.4 L Albumin (3.5 - 5.0 g/dL) 2.2 L Coagulation PT Pending INR Pending Hematology CBC w Diff NO MAN DIFF REQ WBC (4.8 - 10.8 /CUMM) 7.8 RBC (4.20 - 5.40 /CUMM) 2.84 L Hgb (12.0 - 16.0 G/DL) 8.2 L Hct (37 - 47 %) 25.1 L MCV (81.0 - 99.0 FL) 88.5 MCH (27.0 - 31.0 PG) 28.7 MCHC (33.0 - 37.0 G/DL) 32.5 L RDW (11.5 - 14.5 %) 17.4 H Plt Count (130 - 400 /CUMM) 79 L MPV (7.4 - 10.4 FL) 8.9 Gran % (42.2 - 75.2 %) 50.9 Lymphocytes % (20.5 - 51.1 %) 35.2 Monocytes % (1.7 - 9.3 %) 7.3 Eosinophils % (0 - 5 %) 6.0 H Basophils % (0.0 - 2.0 %) 0.6 Absolute Granulocytes (1.4 - 6.5 /CUMM) 4.0 Absolute Lymphocytes (1.2 - 3.4 /CUMM) 2.7 Absolute Monocytes (0.10 - 0.60 /CUMM) 0.6 Absolute Eosinophils (0.0 - 0.7 /CUMM) 0.5 Absolute Basophils (0.0 - 0.2 /CUMM) 0 Serology HCV RNA (PCR) IUs/ml Pending HCV RNA PCR log IUs/ml Pending 12/07 12/07 5261 4870 Chemistry Potassium (3.5 - 5.1 mmol/L) 3.6 Magnesium (1.6 - 2.3 mg/dL) 1.6 Hematology CBC w Diff NO MAN DIFF REQ NO MAN DIFF REQ WBC (4.8 - 10.8 /CUMM) 6.0 6.7 RBC (4.20 - 5.40 /CUMM) 2.62 L 2.65 L Hgb (12.0 - 16.0 G/DL) 7.6 L 7.6 L Hct (37 - 47 %) 22.9 L 23.3 L MCV (81.0 - 99.0 FL) 87.4 87.8 MCH (27.0 - 31.0 PG) 28.9 28.8 MCHC (33.0 - 37.0 G/DL) 33.1 32.8 L RDW (11.5 - 14.5 %) 17.1 H 17.7 H Plt Count (130 - 400 /CUMM) 63 L 65 L MPV (7.4 - 10.4 FL) 8.7 9.2 Gran % (42.2 - 75.2 %) 53.4 54.6 Lymphocytes % (20.5 - 51.1 %) 32.8 34.0 Monocytes % (1.7 - 9.3 %) 8.1 6.4 Eosinophils % (0 - 5 %) 5.1 H 4.4 Basophils % (0.0 - 2.0 %) 0.6 0.6 Absolute Granulocytes (1.4 - 6.5 /CUMM) 3.2 3.7 Absolute Lymphocytes (1.2 - 3.4 /CUMM) 2.0 2.3 Absolute Monocytes (0.10 - 0.60 /CUMM) 0.5 0.4 Absolute Eosinophils (0.0 - 0.7 /CUMM) 0.3 0.3 Absolute Basophils (0.0 - 0.2 /CUMM) 0 0 18 18 1010 0608 Chemistry Alpha Fetoprotein Pending Hematology CBC w Diff NO MAN DIFF REQ WBC (4.8 - 10.8 /CUMM) 7.4 RBC (4.20 - 5.40 /CUMM) 2.98 L Hgb (12.0 - 16.0 G/DL) 8.4 L Hct (37 - 47 %) 26.4 L MCV (81.0 - 99.0 FL) 88.4 MCH (27.0 - 31.0 PG) 28.1 MCHC (33.0 - 37.0 G/DL) 31.8 L RDW (11.5 - 14.5 %) 17.5 H Plt Count (130 - 400 /CUMM) 77 L MPV (7.4 - 10.4 FL) 8.9 Gran % (42.2 - 75.2 %) 63.0 Lymphocytes % (20.5 - 51.1 %) 27.1 Monocytes % (1.7 - 9.3 %) 6.3 Eosinophils % (0 - 5 %) 2.9 Basophils % (0.0 - 2.0 %) 0.7 Absolute Granulocytes (1.4 - 6.5 /CUMM) 4.7 Absolute Lymphocytes (1.2 - 3.4 /CUMM) 2.0 Absolute Monocytes (0.10 - 0.60 /CUMM) 0.5 Absolute Eosinophils (0.0 - 0.7 /CUMM) 0.2 Absolute Basophils (0.0 - 0.2 /CUMM) 0.1 12/07 12/06 0608 2315 Chemistry Sodium (137 - 145 mmol/L) 143 Potassium (3.5 - 5.1 mmol/L) 3.8 Chloride (98 - 107 mmol/L) 109 H Carbon Dioxide (22 - 30 mmol/L) 28 Anion Gap (5 - 16) 6 BUN (7 - 17 mg/dL) 33 H Creatinine (0.5 - 1.0 mg/dL) 0.7 Estimated GFR (>60 ml/min) > 60 Glucose (65 - 99 mg/dL) 97 Calcium (8.4 - 10.2 mg/dL) 7.4 L Phosphorus (2.5 - 4.5 mg/dL) 2.9 Magnesium (1.6 - 2.3 mg/dL) 1.5 L Total Bilirubin (0.2 - 1.3 mg/dL) 3.2 H AST (14 - 36 U/L) 121 H ALT (9 - 52 U/L) 75 H Albumin (3.5 - 5.0 g/dL) 2.1 L Coagulation PT (9.4 - 12.5 SEC) 21.9 H INR (0.90 - 1.19) 2.00 H Hematology CBC w Diff NO MAN DIFF REQ NO MAN DIFF REQ WBC (4.8 - 10.8 /CUMM) 8.1 8.8 RBC (4.20 - 5.40 /CUMM) 2.72 L 2.35 L Hgb (12.0 - 16.0 G/DL) 7.7 L 6.7 *L Hct (37 - 47 %) 23.7 L 20.1 L MCV (81.0 - 99.0 FL) 87.2 85.5 MCH (27.0 - 31.0 PG) 28.5 28.4 MCHC (33.0 - 37.0 G/DL) 32.7 L 33.2 RDW (11.5 - 14.5 %) 17.8 H 18.2 H Plt Count (130 - 400 /CUMM) 68 L 78 L MPV (7.4 - 10.4 FL) 9.6 9.6 Gran % (42.2 - 75.2 %) 58.5 61.3 Lymphocytes % (20.5 - 51.1 %) 31.7 29.0 Monocytes % (1.7 - 9.3 %) 7.5 9.0 Eosinophils % (0 - 5 %) 1.8 0.4 Basophils % (0.0 - 2.0 %) 0.5 0.3 Absolute Granulocytes (1.4 - 6.5 /CUMM) 4.8 5.4 Absolute Lymphocytes (1.2 - 3.4 /CUMM) 2.6 2.6 Absolute Monocytes (0.10 - 0.60 /CUMM) 0.6 0.8 H Absolute Eosinophils (0.0 - 0.7 /CUMM) 0.1 0 Absolute Basophils (0.0 - 0.2 /CUMM) 0 0 12/06 1654 1314 Coagulation PT (9.4 - 12.5 SEC) 22.4 H INR (0.90 - 1.19) 2.04 H Hematology CBC w Diff Cancelled NO MAN DIFF REQ WBC (4.8 - 10.8 /CUMM) Cancelled 10.7 RBC (4.20 - 5.40 /CUMM) Cancelled 3.06 L Hgb (12.0 - 16.0 G/DL) Cancelled 8.6 L Hct (37 - 47 %) Cancelled 26.1 L MCV (81.0 - 99.0 FL) Cancelled 85.2 MCH (27.0 - 31.0 PG) Cancelled 28.2 MCHC (33.0 - 37.0 G/DL) Cancelled 33.1 RDW (11.5 - 14.5 %) Cancelled 17.8 H Plt Count (130 - 400 /CUMM) Cancelled 109 L MPV (7.4 - 10.4 FL) Cancelled 9.9 Gran % (42.2 - 75.2 %) 74.8 Lymphocytes % (20.5 - 51.1 %) 17.7 L Monocytes % (1.7 - 9.3 %) 6.7 Eosinophils % (0 - 5 %) 0.1 Basophils % (0.0 - 2.0 %) 0.7 Absolute Granulocytes (1.4 - 6.5 /CUMM) 8.0 H Absolute Lymphocytes (1.2 - 3.4 /CUMM) 1.9 Absolute Monocytes (0.10 - 0.60 /CUMM) 0.7 H Absolute Eosinophils (0.0 - 0.7 /CUMM) 0 Absolute Basophils (0.0 - 0.2 /CUMM) 0.1 12/06 1023 Chemistry Sodium (137 - 145 mmol/L) 138 Potassium (3.5 - 5.1 mmol/L) 4.1 Chloride (98 - 107 mmol/L) 103 Carbon Dioxide (22 - 30 mmol/L) 27 Anion Gap (5 - 16) 8 BUN (7 - 17 mg/dL) 35 H Creatinine (0.5 - 1.0 mg/dL) 0.7 Estimated GFR (>60 ml/min) > 60 BUN/Creatinine Ratio (7 - 25 %) 50.0 H Glucose (65 - 99 mg/dL) 111 H Calcium (8.4 - 10.2 mg/dL) 8.7 Total Bilirubin (0.2 - 1.3 mg/dL) 3.8 H Direct Bilirubin (< 0.4 mg/dL) 2.1 H AST (14 - 36 U/L) 134 H ALT (9 - 52 U/L) 79 H Alkaline Phosphatase (<127 U/L) 140 H Total Protein (6.3 - 8.2 g/dL) 6.1 L Albumin (3.5 - 5.0 g/dL) 2.7 L Globulin (1.9 - 4.2 gm/dL) 3.4 Albumin/Globulin Ratio (1.1 - 2.2 %) 0.8 L Amylase (30 - 110 U/L) 64 Lipase (23 - 300 U/L) 130 Hematology CBC w Diff NO MAN DIFF REQ WBC (4.8 - 10.8 /CUMM) 8.5 RBC (4.20 - 5.40 /CUMM) 3.41 L Hgb (12.0 - 16.0 G/DL) 9.6 L Hct (37 - 47 %) 28.9 L MCV (81.0 - 99.0 FL) 84.9 MCH (27.0 - 31.0 PG) 28.0 MCHC (33.0 - 37.0 G/DL) 33.0 RDW (11.5 - 14.5 %) 18.5 H Plt Count (130 - 400 /CUMM) 100 L MPV (7.4 - 10.4 FL) 9.9 Gran % (42.2 - 75.2 %) 82.1 H Lymphocytes % (20.5 - 51.1 %) 12.1 L Monocytes % (1.7 - 9.3 %) 5.5 Eosinophils % (0 - 5 %) 0 Basophils % (0.0 - 2.0 %) 0.3 Absolute Granulocytes (1.4 - 6.5 /CUMM) 7.0 H Absolute Lymphocytes (1.2 - 3.4 /CUMM) 1.0 L Absolute Monocytes (0.10 - 0.60 /CUMM) 0.5 Absolute Eosinophils (0.0 - 0.7 /CUMM) 0 Absolute Basophils (0.0 - 0.2 /CUMM) 0
[2017-12-08 11:24] LABS: PT 18.7 SEC (9.4-12.5)
[2017-12-08 19:26] LABS: ABSOLUTE BASOPHIL COUNT 0 /CUMM (0.0-0.2); ABSOLUTE EOSINOPHIL COUNT 0.3 /CUMM (0.0-0.7); ABSOLUTE GRANULOCYTE CT 3.7 /CUMM (1.4-6.5); ABSOLUTE LYMPH COUNT 1.2 /CUMM (1.2-3.4); ABSOLUTE MONOCYTE COUNT 0.4 /CUMM (0.10-0.60); BASOPHIL % 0.9 % (0.0-2.0); EOSINOPHIL % 6.1 % (0-5); GRANULOCYTE % 64.6 % (42.2-75.2); MEAN CORPUSCULAR HGB 29.1 PG (27.0-31.0); MEAN CORPUSCULAR HGB CONC 32.6 G/DL (33.0-37.0); MEAN CORPUSCULAR VOLUME 89.2 FL (81.0-99.0); MEAN PLATELET VOLUME 8.8 FL (7.4-10.4); RED BLOOD CELL CT 2.92 /CUMM (4.20-5.40); WHITE BLOOD CELL COUNT 5.7 /CUMM (4.8-10.8)
[2017-12-08 19:30] LABS: PLATELET COUNT 68 /CUMM (130-400)
[2017-12-09] VITALS (8 sets, daily range): BP systolic 93–141; BP diastolic 51–89
[2017-12-09 05:25] LABS: ABSOLUTE BASOPHIL COUNT 0 /CUMM (0.0-0.2); ABSOLUTE EOSINOPHIL COUNT 0.3 /CUMM (0.0-0.7); ABSOLUTE GRANULOCYTE CT 3.5 /CUMM (1.4-6.5); ABSOLUTE LYMPH COUNT 1.6 /CUMM (1.2-3.4); ABSOLUTE MONOCYTE COUNT 0.3 /CUMM (0.10-0.60); BASOPHIL % 0.8 % (0.0-2.0); EOSINOPHIL % 5.4 % (0-5); GRANULOCYTE % 60.1 % (42.2-75.2); HEMATOCRIT 24.9 % (37-47); MEAN CORPUSCULAR HGB 28.9 PG (27.0-31.0); MEAN CORPUSCULAR HGB CONC 32.5 G/DL (33.0-37.0); MEAN CORPUSCULAR VOLUME 89.1 FL (81.0-99.0); PLATELET COUNT 65 /CUMM (130-400); RBC DISTRIBUTION WIDTH 17.6 % (11.5-14.5); RED BLOOD CELL CT 2.79 /CUMM (4.20-5.40); WHITE BLOOD CELL COUNT 5.8 /CUMM (4.8-10.8)
--- NOTE | 2017-12-09 07:20 | PN- Resident CRCU ---
Jose CRYSTAL,Juarez 12/09/17 0720: Subjective HPI/CRCU Issues: Patient still in ICU with IV octreotide drip running. I followed up and examined the patient today. She is resting comfortably in bed , not in distress, denies any complaints such as nausea, vomiting, dizziness, black stool, abdominal pain, fever, chills. VSS. 24 Hour Events: She tried full liquid diet yesterday minimally, did note complaint of nausea nor vomited. Today she is eager to try regular diet. Objective Vital Signs & I&O Last 8 Hrs of Vitals and I&O: Vital Signs Date Time Temp Pulse Resp B/P B/P Pulse O2 O2 Flow FiO2 Mean Ox Delivery Rate 12/09 0800 97.8 88 19 141/89 12/09 0800 95 Room Air Room Air 12/09 0800 97.8 88 19 132/76 95 Room Air 12/09 0600 85 20 130/73 12/09 0400 82 20 127/71 12/09 0400 96 Room Air 12/09 0200 79 20 93/51 12/09 0000 98.2 77 18 120/70 12/09 0000 100 Room Air 12/09 0000 98.2 77 18 120/70 100 Room Air 12/08 2200 80 22 128/69 12/08 2000 99.4 83 28 130/80 12/08 2000 95 Room Air 12/08 1600 98.4 70 24 128/70 96 Room Air Exam General Appearance: no apparent distress, alert, awake, comfortable, obese Other Physical Findings: Head: Normocephalic, atraumatic Eyes: Pupils normal in size, regular, reacting to light and accommodation, EOM normal, icterus+ Throat/mouth: Moist mucosa Neck: Supple, full range of motion Heart: Regular rate, regular rhythm, tachycardia Lung: Normal breath sound bilaterally Added sound not heard Abd: Soft, non-tender, no distention appreciated Extremities: Normal knee exam bilaterally, no pedal edema, Distal neurovascular intact noted today Neurologic: grossly intact Skin: Warm and dry, no bruises IV Drips IV Drips: IV Octeotride Nutrition Nutrition: P.O. diet Current Medications: Current Medications Sig/Param Start time Last Medication Dose Route Stop Time Status Admin Benzocaine/Menthol 1 TORSTEN Q2P PRN 12/07 1000 AC 12/07 PO 1041 Ceftriaxone Sodium 1,000 MG Q24H 03/18 1400 DC 12/08 IV 12/08 2000 1502 Folic Acid 1 MG DAILY 12/09 1000 AC PO Lorazepam 0 Q1P PRN 12/06 2030 AC 12/08 IV 2320 Multivitamins 1 TAB DAILY 12/09 1000 AC PO Multivitamins 1 DAMASO DAILY 12/07 1000 DC 12/08 Sodium Chloride 500 ML IV 12/08 2300 1155 Octreotide Acetate 500 MCG Q10H 12/08 1100 AC 12/09 Sodium Chloride 500 ML IV 0709 Octreotide Acetate 500 MCG Q10H 12/06 1315 DC 12/08 Sodium Chloride 500 ML IV 12/08 1700 0659 Omeprazole 40 MG DAILY AC 12/09 0850 AC PO Phenol 2 SPRAY Q2P PRN 12/07 1945 AC 12/07 EXT 2027 Potassium Chloride 40 MEQ ONCE ONE 12/08 1900 DC 12/08 PO 12/08 1901 1911 Thiamine HCl 100 MG DAILY 12/09 1000 AC PO Thiamine HCl 100 MG DAILY 12/07 1000 DC 12/08 Sodium Chloride 50 ML IV 12/08 1059 1155 Impression/Plan Impression/Problem List Impression: 52-year-old female with past medical history of cirrhosis (since 1996) with hemorrhagic gastropathy secondary to portal hypertension and grade 2 esophageal varices, hepatitis C (since 1996), alcohol abuse, hypertension, thrombocytopenia , anxiety, morbid obesity, presented to the emergency department with complaints of black-colored stool, and blood in vomitus. Patient's vital parameters in the emergency department was suggestive of volume depletion, and also had active ongoing episodes of black stools and bloody vomitus thus was admitted in the ICU for the management of following issues: # Acute blood loss anemia, secondary to GI bleeding Patient's history of cirrhosis, hepatitis C, thrombocytopenia, alcohol abuse, possibly serves as a background for her acute episode of black tarry stool and bloody vomitus, made GI bleeding the most likely diagnosis. She was adequately volume resuscitated, and an upper GI endoscopy was performed which demonstrated grade 2 esophageal varices and banding was done then and there. Patient has not had any episodes of melena or nausea/vomiting after that. IV fluids, IV PPI, IV octreotide infusion still continuing. IV ceftriaxone stopped yesterday (was given for prophylaxis after for banding). * IV Octeotride drip to be stopped per GI recs. * OK to stop Ceftriaxone per GI, which was given for prophylaxis for banding, and not for SBP. * We advanced her diet and did not note any signs of nausea vomiting or GI bleeding. * She can be transferred to a general medical floor. * CBC one more time later this evening given her slight drop in H/H this AM. She is not having any acute bleeding. * Patient will need NOT need a beta avis as she got banding but needs PPI upon discharge per discussion with GI Dr Marco Saucedo. * Follow up with Dr Saucedo after two weeks in out patient setting. She will have the results of Hepatitis C PCR then and possibly plan the treatment. * Consultation with GI appreciated. #Thrombocytopenia, chronic Patient has chronic thrombocytopenia, thus is not on any pharmacological agents for PTE prophylaxis. She is not actively bleeding anymore, and her vitals are stable thus we can just watch it over time. #Supratherapeutic INR Patient initially presented with INR of 2.04, even when she does not take any blood thinners, so this can be partially explained by her cirrhosis affecting her synthetic functions. Her INR is getting better, today at 1.64, and without active bleeding, this can be monitored as well. Of note, she has received 1 unit of FFP before the endoscopy procedure on Day 0. #History of Hypertension We had held her antihypertensive medications for now. We'll restart it from tomorrow morning, before her discharge, slightly at lower dose. Need to adjust before her discharge. #Alcohol abuse Patient has been counseled to stop alcohol, and seems motivated. Social work consultation pending. #Diet: regular diet restarted today #DVT ppx: ALPS only (bleeding) #Code status: Full code Problem List: 1. GI bleed 2. Alcoholic cirrhosis 3. Hepatitis C 4. 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 Other Findings: Patient seen and examined, feels sleepy. No further episodes of n/v, hemetamesis. H&H relatively stable. Vital Signs Date Time Temp Pulse Resp B/P B/P Pulse O2 O2 Flow FiO2 Mean Ox Delivery Rate 12/09 0800 97.8 88 19 141/89 12/09 0800 95 Room Air Room Air 12/09 0800 97.8 88 19 132/76 95 Room Air 12/09 0600 85 20 130/73 12/09 0400 82 20 127/71 12/09 0400 96 Room Air 12/09 0200 79 20 93/51 12/09 0000 98.2 77 18 120/70 12/09 0000 100 Room Air 12/09 0000 98.2 77 18 120/70 100 Room Air 12/08 2200 80 22 128/69 12/08 2000 99.4 83 28 130/80 12/08 2000 95 Room Air 12/08 1600 98.4 70 24 128/70 96 Room Air on exam; aox, nad. cv; s1,s2 rrr resp; clear abd; soft, nt, bs+ ext; no edema. Laboratory Tests 12/09 12/08 0415 1840 Chemistry Sodium (137 - 145 mmol/L) 140 Potassium (3.5 - 5.1 mmol/L) 3.8 Chloride (98 - 107 mmol/L) 108 H Carbon Dioxide (22 - 30 mmol/L) 24 Anion Gap (5 - 16) 8 BUN (7 - 17 mg/dL) 17 Creatinine (0.5 - 1.0 mg/dL) 0.7 Estimated GFR (>60 ml/min) > 60 Glucose (65 - 99 mg/dL) 87 Calcium (8.4 - 10.2 mg/dL) 7.4 L Phosphorus (2.5 - 4.5 mg/dL) 3.1 Magnesium (1.6 - 2.3 mg/dL) 1.5 L Total Bilirubin (0.2 - 1.3 mg/dL) 2.4 H Direct Bilirubin (< 0.4 mg/dL) 1.7 H AST (14 - 36 U/L) 194 H ALT (9 - 52 U/L) 115 H Alkaline Phosphatase (<127 U/L) 82 Total Protein (6.3 - 8.2 g/dL) 5.3 L Albumin (3.5 - 5.0 g/dL) 2.1 L Coagulation PT (9.4 - 12.5 SEC) 18.0 H INR (0.90 - 1.19) 1.64 H Hematology CBC w Diff NO MAN DIFF REQ NO MAN DIFF REQ WBC (4.8 - 10.8 /CUMM) 5.8 5.7 RBC (4.20 - 5.40 /CUMM) 2.79 L 2.92 L Hgb (12.0 - 16.0 G/DL) 8.1 L 8.5 L Hct (37 - 47 %) 24.9 L 26.0 L MCV (81.0 - 99.0 FL) 89.1 89.2 MCH (27.0 - 31.0 PG) 28.9 29.1 MCHC (33.0 - 37.0 G/DL) 32.5 L 32.6 L RDW (11.5 - 14.5 %) 17.6 H 18.0 H Plt Count (130 - 400 /CUMM) 65 L 68 L MPV (7.4 - 10.4 FL) 9.0 8.8 Gran % (42.2 - 75.2 %) 60.1 64.6 Lymphocytes % (20.5 - 51.1 %) 27.7 21.9 Monocytes % (1.7 - 9.3 %) 6.0 6.5 Eosinophils % (0 - 5 %) 5.4 H 6.1 H Basophils % (0.0 - 2.0 %) 0.8 0.9 Absolute Granulocytes (1.4 - 6.5 /CUMM) 3.5 3.7 Absolute Lymphocytes (1.2 - 3.4 /CUMM) 1.6 1.2 Absolute Monocytes (0.10 - 0.60 /CUMM) 0.3 0.4 Absolute Eosinophils (0.0 - 0.7 /CUMM) 0.3 0.3 Absolute Basophils (0.0 - 0.2 /CUMM) 0 0 A/P; 52 y/o F with pmh sig for cirrhosis (since 1996) with hemorrhagic gastropathy secondary to portal hypertension and grade 1 esophageal varices, hepatitis C (since 1996), alcohol abuse, hypertension, thrombocytopenia, anxiety , admitted with GI bleed, acute blood loss anemia, s/p EGD with band ligation of esophageal varices. Will be completing her octreotide drip today. Patient's diet has been advanced. Please confirm with GI about her optimal regimen when she is ready for discharge including if she needs to be started on any beta blockers. Agree with switching PPI to oral. Please also confirm the GI about antibiotics course. Usually 5-7 days is good enough. Patient should be getting out of bed to chair and ambulate. Can be transferred to general medicine floor. Continues to improve in the next 24 hours and H&H remained stable (there is a slight drop today, will monitor) then she can be discharged home
--- NOTE | 2017-12-09 13:55 | Transfer of Care Summary ---
Hospital Course Course Hospital Course: 52-year-old female with past medical history of cirrhosis (since 1996) with hemorrhagic gastropathy secondary to portal hypertension and grade 2 esophageal varices, hepatitis C (since 1996), alcohol abuse, hypertension, thrombocytopenia , anxiety, morbid obesity, presented to the emergency department with complaints of black-colored stool, and blood in vomitus. Patient's vital parameters in the emergency department was suggestive of volume depletion, and also had active ongoing episodes of black stools and bloody vomitus thus was admitted in the ICU for the management of following issues: # Acute blood loss anemia, secondary to GI bleeding Patient's history of cirrhosis, hepatitis C, thrombocytopenia, alcohol abuse, possibly serves as a background for her acute episode of black tarry stool and bloody vomitus, made GI bleeding the most likely diagnosis. She was adequately volume resuscitated, and an upper GI endoscopy was performed which demonstrated grade 2 esophageal varices and banding was done then and there. Patient has not had any episodes of melena or nausea/vomiting after that. IV fluids, IV PPI, IV octreotide infusion still continuing. IV ceftriaxone stopped yesterday (was given for prophylaxis after for banding). * IV Octeotride drip stopped per GI recs. * OK to stop Ceftriaxone per GI, which was given for prophylaxis for banding, and not for SBP. * We advanced her diet and did not note any signs of nausea vomiting or GI bleeding. * She can be transferred to a general medical floor. * CBC one more time later this evening given her slight drop in H/H this AM. She is not having any acute bleeding. * Patient will need NOT need a beta avis as she got banding but needs PPI upon discharge per discussion with GI Dr Marco Saucedo. * Follow up with Dr Saucedo after two weeks in out patient setting. She will have the results of Hepatitis C PCR then and possibly plan the treatment. * Consultation with GI appreciated. #Thrombocytopenia, chronic Patient has chronic thrombocytopenia, thus is not on any pharmacological agents for PTE prophylaxis. She is not actively bleeding anymore, and her vitals are stable thus we can just watch it over time. #Supratherapeutic INR Patient initially presented with INR of 2.04, even when she does not take any blood thinners, so this can be partially explained by her cirrhosis affecting her synthetic functions. Her INR is getting better, today at 1.64, and without active bleeding, this can be monitored as well. Of note, she has received 1 unit of FFP before the endoscopy procedure on Day 0. #History of Hypertension Will hold her antihypertensive medications for now. We'll have to restart before her discharge, hopefully tomorrow morning. #Alcohol abuse Patient has been counseled to stop alcohol, and seems motivated. Social work consultation pending. Consultations: GI (Dr Saucedo) Pressor support required: No Ventilator support required: [place]/date of procedure: UGI Endoscopy with variceal band ligation on 12/06/17 Follow up on discharge: Dr Meryl Saucedo in two weeks, needs workup on Hep C To do: -Restart BP meds before discharge. -Social work consultation. #Diet: regular diet restarted today #DVT ppx: ALPS only (bleeding) #Code status: Full code Significant Procedures: Upper GI endoscopy with initial band ligation done on 12/06/2017 by GI: Findings: 1. One column of grade 2 esophageal varices with stigmata of bleeding 2. Portal hypertensive gastropathy Impression: 1. One column of grade 2 esophageal varices with stigmata of bleeding 2. Portal hypertensive gastropathy Assessment/Plan: as noted above
--- NOTE | 2017-12-09 16:18 | PN- Gastroenterology ---
Assessment/Plan GI Assessment/Recommendations: ASSESSMENT: 1. Grade 2 esophageal varices, S/P banding 2. Cirrhosis due to alcohol abuse and hepatitis C 3. Hepatitis C 4. Alcohol abuse 5. Thrombocytopenia and coagulopathy 6. Acute and chronic anemia RECOMMENDATIONS: 1. DC octreotide 2. Stable for discharge from unit 3. Have explained to patient that she will need to see me in the office within the next 10-14 days 4. Resume antihypertensive medications. Patient does not need to be started on beta avis as patient will be banded to obliteration. 5. Gastritis/portal hypertensive gastropathy. Would discharge on Protonix 40 mg by mouth every morning to take 30-45 minutes for breakfast daily Subjective Subjective: Patient tolerating diet. No melenic stools. No chest pain shortness of breath fever or shaking chills. Objective Vital Signs and I&Os Vital Signs Date Time Temp Pulse Resp B/P B/P Pulse O2 O2 Flow FiO2 Mean Ox Delivery Rate 12/09 1200 98.2 88 28 128/80 12/09 1200 99 Room Air 12/09 0800 97.8 88 19 141/89 12/09 0800 95 Room Air Room Air 12/09 0800 97.8 88 19 132/76 95 Room Air 12/09 0600 85 20 130/73 12/09 0400 82 20 127/71 12/09 0400 96 Room Air 12/09 0200 79 20 93/51 12/09 0000 98.2 77 18 120/70 12/09 0000 100 Room Air 12/09 0000 98.2 77 18 120/70 100 Room Air 12/08 2200 80 22 128/69 12/08 2000 99.4 83 28 130/80 12/08 2000 95 Room Air Intake & Output 12/09 1600 12/09 0400 12/08 1600 12/08 0400 12/07 1600 12/07 0400 Intake Total 1168 1040 6953 095 7165 2260 Output Total 055 127 1680 200 Balance 868 465 781 546 6364 2260 Intake, Blood 350 250 Product Intake, IV 788 032 2731 400 2596 2010 Intake, Oral 600 640 600 370 120 Number 1 1 2 5 2 Bowel Movements Output, Urine 097 376 1035 200 Patient 235 lb 235 lb Weight Weight Reported by Patient Measurement Method Physical Exam General Appearance: well developed/nourished, no apparent distress, alert, awake Respiratory: normal breath sounds, lungs clear Cardiovascular: regular rate/rhythm, normal S1 and S2 without rub murmur or gallop Abdomen: normal bowel sounds, soft, non-tender, no organomegaly Extremities: normal inspection, no edema Neurologic/Psychiatric: no motor/sensory deficits, awake, alert, oriented x 3, normal mood/affect Skin: intact, normal color, warm/dry Current Medications: Current Medications Sig/Param Start time Last Medication Dose Route Stop Time Status Admin Benzocaine/Menthol 1 TORSTEN Q2P PRN 12/07 1000 AC 12/07 PO 1041 Ceftriaxone Sodium 1,000 MG Q24H 12/07 1400 DC 12/08 IV 12/08 2000 1502 Folic Acid 1 MG DAILY 12/09 1000 AC 12/09 PO 0944 Lorazepam 0 Q1P PRN 12/06 2030 AC 12/08 IV 2320 Multivitamins 1 TAB DAILY 12/09 1000 AC 12/09 PO 0944 Multivitamins 1 DAMASO DAILY 12/07 1000 DC 12/08 Sodium Chloride 500 ML IV 12/08 2300 1155 Octreotide Acetate 500 MCG Q10H 12/08 1100 DC 12/09 Sodium Chloride 500 ML IV 0709 Omeprazole 40 MG DAILY AC 12/09 0850 AC 12/09 PO 0944 Ondansetron HCl 4 MG ONCE ONE 12/09 1430 DC 12/09 IV 12/09 1431 1454 Phenol 2 SPRAY Q2P PRN 12/07 1945 AC 12/07 EXT 2028 Potassium Chloride 40 MEQ ONCE ONE 12/08 1900 DC 12/08 PO 12/08 1901 1911 Thiamine HCl 100 MG DAILY 12/09 1000 AC 12/09 PO 0944 Results Pertinent Lab Results: Laboratory Tests 12/09 12/08 0415 1840 Chemistry Sodium (137 - 145 mmol/L) 140 Potassium (3.5 - 5.1 mmol/L) 3.8 Chloride (98 - 107 mmol/L) 108 H Carbon Dioxide (22 - 30 mmol/L) 24 Anion Gap (5 - 16) 8 BUN (7 - 17 mg/dL) 17 Creatinine (0.5 - 1.0 mg/dL) 0.7 Estimated GFR (>60 ml/min) > 60 Glucose (65 - 99 mg/dL) 87 Calcium (8.4 - 10.2 mg/dL) 7.4 L Phosphorus (2.5 - 4.5 mg/dL) 3.1 Magnesium (1.6 - 2.3 mg/dL) 1.5 L Total Bilirubin (0.2 - 1.3 mg/dL) 2.4 H Direct Bilirubin (< 0.4 mg/dL) 1.7 H AST (14 - 36 U/L) 194 H ALT (9 - 52 U/L) 115 H Alkaline Phosphatase (<127 U/L) 82 Total Protein (6.3 - 8.2 g/dL) 5.3 L Albumin (3.5 - 5.0 g/dL) 2.1 L Coagulation PT (9.4 - 12.5 SEC) 18.0 H INR (0.90 - 1.19) 1.64 H Hematology CBC w Diff NO MAN DIFF REQ NO MAN DIFF REQ WBC (4.8 - 10.8 /CUMM) 5.8 5.7 RBC (4.20 - 5.40 /CUMM) 2.79 L 2.92 L Hgb (12.0 - 16.0 G/DL) 8.1 L 8.5 L Hct (37 - 47 %) 24.9 L 26.0 L MCV (81.0 - 99.0 FL) 89.1 89.2 MCH (27.0 - 31.0 PG) 28.9 29.1 MCHC (33.0 - 37.0 G/DL) 32.5 L 32.6 L RDW (11.5 - 14.5 %) 17.6 H 18.0 H Plt Count (130 - 400 /CUMM) 65 L 68 L MPV (7.4 - 10.4 FL) 9.0 8.8 Gran % (42.2 - 75.2 %) 60.1 64.6 Lymphocytes % (20.5 - 51.1 %) 27.7 21.9 Monocytes % (1.7 - 9.3 %) 6.0 6.5 Eosinophils % (0 - 5 %) 5.4 H 6.1 H Basophils % (0.0 - 2.0 %) 0.8 0.9 Absolute Granulocytes (1.4 - 6.5 /CUMM) 3.5 3.7 Absolute Lymphocytes (1.2 - 3.4 /CUMM) 1.6 1.2 Absolute Monocytes (0.10 - 0.60 /CUMM) 0.3 0.4 Absolute Eosinophils (0.0 - 0.7 /CUMM) 0.3 0.3 Absolute Basophils (0.0 - 0.2 /CUMM) 0 0 12/08 12/08 0930 0500 Chemistry Sodium (137 - 145 mmol/L) 143 Potassium (3.5 - 5.1 mmol/L) 3.6 Chloride (98 - 107 mmol/L) 108 H Carbon Dioxide (22 - 30 mmol/L) 27 Anion Gap (5 - 16) 8 BUN (7 - 17 mg/dL) 24 H Creatinine (0.5 - 1.0 mg/dL) 0.8 Estimated GFR (>60 ml/min) > 60 Glucose (65 - 99 mg/dL) 78 Calcium (8.4 - 10.2 mg/dL) 7.2 L Phosphorus (2.5 - 4.5 mg/dL) 2.6 Magnesium (1.6 - 2.3 mg/dL) 1.7 Total Bilirubin (0.2 - 1.3 mg/dL) 2.5 H Direct Bilirubin (< 0.4 mg/dL) 1.6 H AST (14 - 36 U/L) 208 H ALT (9 - 52 U/L) 100 H Alkaline Phosphatase (<127 U/L) 83 Total Protein (6.3 - 8.2 g/dL) 5.4 L Albumin (3.5 - 5.0 g/dL) 2.2 L Coagulation PT (9.4 - 12.5 SEC) 18.7 H INR (0.90 - 1.19) 1.71 H Hematology CBC w Diff NO MAN DIFF REQ WBC (4.8 - 10.8 /CUMM) 7.8 RBC (4.20 - 5.40 /CUMM) 2.84 L Hgb (12.0 - 16.0 G/DL) 8.2 L Hct (37 - 47 %) 25.1 L MCV (81.0 - 99.0 FL) 88.5 MCH (27.0 - 31.0 PG) 28.7 MCHC (33.0 - 37.0 G/DL) 32.5 L RDW (11.5 - 14.5 %) 17.4 H Plt Count (130 - 400 /CUMM) 79 L MPV (7.4 - 10.4 FL) 8.9 Gran % (42.2 - 75.2 %) 50.9 Lymphocytes % (20.5 - 51.1 %) 35.2 Monocytes % (1.7 - 9.3 %) 7.3 Eosinophils % (0 - 5 %) 6.0 H Basophils % (0.0 - 2.0 %) 0.6 Absolute Granulocytes (1.4 - 6.5 /CUMM) 4.0 Absolute Lymphocytes (1.2 - 3.4 /CUMM) 2.7 Absolute Monocytes (0.10 - 0.60 /CUMM) 0.6 Absolute Eosinophils (0.0 - 0.7 /CUMM) 0.5 Absolute Basophils (0.0 - 0.2 /CUMM) 0 Serology HCV RNA (PCR) IUs/ml (NOT DETECTED IU/mL) [id number] H HCV RNA PCR log IUs/ml (NOT DETECTED) 5.91 H 12/07 12/07 2345 1530 Chemistry Potassium (3.5 - 5.1 mmol/L) 3.6 Magnesium (1.6 - 2.3 mg/dL) 1.6 Hematology CBC w Diff NO MAN DIFF REQ NO MAN DIFF REQ WBC (4.8 - 10.8 /CUMM) 6.0 6.7 RBC (4.20 - 5.40 /CUMM) 2.62 L 2.65 L Hgb (12.0 - 16.0 G/DL) 7.6 L 7.6 L Hct (37 - 47 %) 22.9 L 23.3 L MCV (81.0 - 99.0 FL) 87.4 87.8 MCH (27.0 - 31.0 PG) 28.9 28.8 MCHC (33.0 - 37.0 G/DL) 33.1 32.8 L RDW (11.5 - 14.5 %) 17.1 H 17.7 H Plt Count (130 - 400 /CUMM) 63 L 65 L MPV (7.4 - 10.4 FL) 8.7 9.2 Gran % (42.2 - 75.2 %) 53.4 54.6 Lymphocytes % (20.5 - 51.1 %) 32.8 34.0 Monocytes % (1.7 - 9.3 %) 8.1 6.4 Eosinophils % (0 - 5 %) 5.1 H 4.4 Basophils % (0.0 - 2.0 %) 0.6 0.6 Absolute Granulocytes (1.4 - 6.5 /CUMM) 3.2 3.7 Absolute Lymphocytes (1.2 - 3.4 /CUMM) 2.0 2.3 Absolute Monocytes (0.10 - 0.60 /CUMM) 0.5 0.4 Absolute Eosinophils (0.0 - 0.7 /CUMM) 0.3 0.3 Absolute Basophils (0.0 - 0.2 /CUMM) 0 0 12/07 12/07 1010 0608 Chemistry Alpha Fetoprotein Pending Hematology CBC w Diff NO MAN DIFF REQ WBC (4.8 - 10.8 /CUMM) 7.4 RBC (4.20 - 5.40 /CUMM) 2.98 L Hgb (12.0 - 16.0 G/DL) 8.4 L Hct (37 - 47 %) 26.4 L MCV (81.0 - 99.0 FL) 88.4 MCH (27.0 - 31.0 PG) 28.1 MCHC (33.0 - 37.0 G/DL) 31.8 L RDW (11.5 - 14.5 %) 17.5 H Plt Count (130 - 400 /CUMM) 77 L MPV (7.4 - 10.4 FL) 8.9 Gran % (42.2 - 75.2 %) 63.0 Lymphocytes % (20.5 - 51.1 %) 27.1 Monocytes % (1.7 - 9.3 %) 6.3 Eosinophils % (0 - 5 %) 2.9 Basophils % (0.0 - 2.0 %) 0.7 Absolute Granulocytes (1.4 - 6.5 /CUMM) 4.7 Absolute Lymphocytes (1.2 - 3.4 /CUMM) 2.0 Absolute Monocytes (0.10 - 0.60 /CUMM) 0.5 Absolute Eosinophils (0.0 - 0.7 /CUMM) 0.2 Absolute Basophils (0.0 - 0.2 /CUMM) 0.1 12/07 12/06 0608 2315 Chemistry Sodium (137 - 145 mmol/L) 143 Potassium (3.5 - 5.1 mmol/L) 3.8 Chloride (98 - 107 mmol/L) 109 H Carbon Dioxide (22 - 30 mmol/L) 28 Anion Gap (5 - 16) 6 BUN (7 - 17 mg/dL) 33 H Creatinine (0.5 - 1.0 mg/dL) 0.7 Estimated GFR (>60 ml/min) > 60 Glucose (65 - 99 mg/dL) 97 Calcium (8.4 - 10.2 mg/dL) 7.4 L Phosphorus (2.5 - 4.5 mg/dL) 2.9 Magnesium (1.6 - 2.3 mg/dL) 1.5 L Total Bilirubin (0.2 - 1.3 mg/dL) 3.2 H AST (14 - 36 U/L) 121 H ALT (9 - 52 U/L) 75 H Albumin (3.5 - 5.0 g/dL) 2.1 L Coagulation PT (9.4 - 12.5 SEC) 21.9 H INR (0.90 - 1.19) 2.00 H Hematology CBC w Diff NO MAN DIFF REQ NO MAN DIFF REQ WBC (4.8 - 10.8 /CUMM) 8.1 8.8 RBC (4.20 - 5.40 /CUMM) 2.72 L 2.35 L Hgb (12.0 - 16.0 G/DL) 7.7 L 6.7 *L Hct (37 - 47 %) 23.7 L 20.1 L MCV (81.0 - 99.0 FL) 87.2 85.5 MCH (27.0 - 31.0 PG) 28.5 28.4 MCHC (33.0 - 37.0 G/DL) 32.7 L 33.2 RDW (11.5 - 14.5 %) 17.8 H 18.2 H Plt Count (130 - 400 /CUMM) 68 L 78 L MPV (7.4 - 10.4 FL) 9.6 9.6 Gran % (42.2 - 75.2 %) 58.5 61.3 Lymphocytes % (20.5 - 51.1 %) 31.7 29.0 Monocytes % (1.7 - 9.3 %) 7.5 9.0 Eosinophils % (0 - 5 %) 1.8 0.4 Basophils % (0.0 - 2.0 %) 0.5 0.3 Absolute Granulocytes (1.4 - 6.5 /CUMM) 4.8 5.4 Absolute Lymphocytes (1.2 - 3.4 /CUMM) 2.6 2.6 Absolute Monocytes (0.10 - 0.60 /CUMM) 0.6 0.8 H Absolute Eosinophils (0.0 - 0.7 /CUMM) 0.1 0 Absolute Basophils (0.0 - 0.2 /CUMM) 0 0 12/06 1654 Hematology CBC w Diff Cancelled NO MAN DIFF REQ WBC (4.8 - 10.8 /CUMM) Cancelled 10.7 RBC (4.20 - 5.40 /CUMM) Cancelled 3.06 L Hgb (12.0 - 16.0 G/DL) Cancelled 8.6 L Hct (37 - 47 %) Cancelled 26.1 L MCV (81.0 - 99.0 FL) Cancelled 85.2 MCH (27.0 - 31.0 PG) Cancelled 28.2 MCHC (33.0 - 37.0 G/DL) Cancelled 33.1 RDW (11.5 - 14.5 %) Cancelled 17.8 H Plt Count (130 - 400 /CUMM) Cancelled 109 L MPV (7.4 - 10.4 FL) Cancelled 9.9 Gran % (42.2 - 75.2 %) 74.8 Lymphocytes % (20.5 - 51.1 %) 17.7 L Monocytes % (1.7 - 9.3 %) 6.7 Eosinophils % (0 - 5 %) 0.1 Basophils % (0.0 - 2.0 %) 0.7 Absolute Granulocytes (1.4 - 6.5 /CUMM) 8.0 H Absolute Lymphocytes (1.2 - 3.4 /CUMM) 1.9 Absolute Monocytes (0.10 - 0.60 /CUMM) 0.7 H Absolute Eosinophils (0.0 - 0.7 /CUMM) 0 Absolute Basophils (0.0 - 0.2 /CUMM) 0.1
[2017-12-09 17:40] LABS: ABSOLUTE BASOPHIL COUNT 0 /CUMM (0.0-0.2); ABSOLUTE EOSINOPHIL COUNT 0.3 /CUMM (0.0-0.7); ABSOLUTE GRANULOCYTE CT 4.2 /CUMM (1.4-6.5); ABSOLUTE LYMPH COUNT 1.5 /CUMM (1.2-3.4); ABSOLUTE MONOCYTE COUNT 0.4 /CUMM (0.10-0.60); BASOPHIL % 0.5 % (0.0-2.0); GRANULOCYTE % 65.5 % (42.2-75.2); HEMATOCRIT 25.9 % (37-47); MEAN CORPUSCULAR HGB 29.4 PG (27.0-31.0); MEAN CORPUSCULAR HGB CONC 32.8 G/DL (33.0-37.0); MEAN CORPUSCULAR VOLUME 89.5 FL (81.0-99.0); MEAN PLATELET VOLUME 8.7 FL (7.4-10.4); PLATELET COUNT 76 /CUMM (130-400); RBC DISTRIBUTION WIDTH 17.1 % (11.5-14.5); RED BLOOD CELL CT 2.89 /CUMM (4.20-5.40); WHITE BLOOD CELL COUNT 6.4 /CUMM (4.8-10.8)
[2017-12-10] VITALS: BP 140/80
[2017-12-10 06:04] VITALS: BP 130/80
--- NOTE | 2017-12-10 07:37 | PN- Housestaff ---
Lamonte Lezama 12/10/17 0736: Subjective Follow-up For: Esophageal varices s/p banding Subjective: No complaints or acute events overnight. She denies hematemesis, melena, palpitations, SOB, CP. at bedside anticipates for to go home today. Review of Systems Constitutional: Reports: see HPI. Objective Last 24 Hrs of Vital Signs/I&O Vital Signs Date Time Temp Pulse Resp B/P B/P Pulse O2 O2 Flow FiO2 Mean Ox Delivery Rate 12/10 1200 98.3 78 20 130/80 12/10 0942 98.3 78 20 130/80 12/10 0800 98.3 78 20 130/80 12/10 0604 98.3 78 20 130/80 97 Room Air 12/10 0000 98.6 83 20 140/80 12/09 1915 98.6 83 20 140/80 100 Room Air 12/09 1600 97.5 77 20 126/72 12/09 1600 98.0 77 20 126/72 98 Nasal Room Air Cannula Intake & Output 12/10 1600 12/10 0800 12/10 0000 Intake Total 360 120 Output Total Balance 360 120 Intake, Oral 360 120 Physical Exam General Appearance: Alert, Oriented X3, Cooperative, No Acute Distress Cardiovascular: Regular Rate, Normal S1, Normal S2 Lungs: Clear to Auscultation, Normal Air Movement Abdomen: Normal Bowel Sounds, Soft, No Tenderness Extremities: No Edema Current Medications: Current Medications Sig/Param Start time Last Medication Dose Route Stop Time Status Admin Benzocaine/Menthol 1 TORSTEN Q2P PRN 12/07 1000 AC 12/07 PO 1041 Folic Acid 1 MG DAILY 12/09 1000 AC 12/10 PO 0942 Hydrochlorothiazide 12.5 MG DAILY 12/10 1000 AC 12/10 PO 0942 Lorazepam 0 Q1P PRN 12/06 2030 AC 12/09 IV 2231 Losartan Potassium 25 MG DAILY 12/10 1000 AC 12/10 PO 0942 Multivitamins 1 TAB DAILY 12/09 1000 AC 12/10 PO 0942 Omeprazole 40 MG DAILY AC 12/09 0850 AC 12/10 PO 0606 Ondansetron HCl 4 MG ONCE ONE 12/09 2214 DC 12/09 IV 12/09 2216 2231 Patient Medication 1 ED ONE ONE 12/10 1030 DC Teaching ED 12/10 1031 Phenol 2 SPRAY Q2P PRN 12/07 1945 AC 12/07 EXT 2027 Thiamine HCl 100 MG DAILY 12/09 1000 AC 12/10 PO 0941 Last 24 Hrs of Lab/Maciel Results Last 24 Hrs of Labs/Mics: Laboratory Tests 12/10/17 0754: Anion Gap 7, Estimated GFR > 60, BUN/Creatinine Ratio 23.3, Magnesium 1.4 L, CBC w Diff NO MAN DIFF REQ, RBC 2.75 L, MCV 90.6, MCH 28.7, MCHC 31.7 L, RDW 17.2 H, MPV 9.4, Gran % 62.1, Lymphocytes % 25.5, Monocytes % 7.1, Eosinophils % 5.0, Basophils % 0.3, Absolute Granulocytes 3.1, Absolute Lymphocytes 1.3, Absolute Monocytes 0.4, Absolute Eosinophils 0.3, Absolute Basophils 0 12/09/17 1730: CBC w Diff NO MAN DIFF REQ, RBC 2.89 L, MCV 89.5, MCH 29.4, MCHC 32.8 L, RDW 17.1 H, MPV 8.7, Gran % 65.5, Lymphocytes % 23.1, Monocytes % 5.9, Eosinophils % 5.0, Basophils % 0.5, Absolute Granulocytes 4.2, Absolute Lymphocytes 1.5, Absolute Monocytes 0.4, Absolute Eosinophils 0.3, Absolute Basophils 0 Assessment/Plan Assessment: 52-year-old female with past medical history of cirrhosis (since 1996) with hemorrhagic gastropathy secondary to portal hypertension and grade 2 esophageal varices, hepatitis C (since 1996), alcohol abuse, hypertension, thrombocytopenia , anxiety, morbid obesity, presented to the emergency department with complaints of hematemesis and melena Problem list: Esophageal varices Supratherapeutic INR Plan: H&H stable, goal >7 Continue off antibiotics, pt received prophylaxis Ceftriaxone prior to banding Hold off betablocker because banding performed Patient to follow up with GI for possible EGD in 2 weeks GI recommendations appreciated Patient will be continue on home BP meds upon discharge today Patient refuses IOP appointment but asserts that she will attend AA meetings and social work has provided her with the needed information DVT prophylaxis: ALPS Problem List: 1. Varices, esophageal Pain Ratin Pain Location: NA Pain Goal: Remain pain free Pain Plan: NA Tomorrow's Labs & Rationales: none DEllen Monreal MD 12/10/17 1415: Attending MD Review Statement Attending Statement Attending MD Statement: examined this patient, discuss w/resident/PA/RESTAURANT MANAGING [employer]NER, agreed w/resident/PA/RESTAUR[employer]NAG[employer]NER, reviewed EMR data (avail), discussed with nursing, discussed with case mgmt, reviewed images Attending Assessment/Plan: Patient transferred from the ICU to the general medical service. She is a 52- year-old female who has hep C and alcoholic cirrhosis, hypertension and was treated in the ICU for a variceal bleed and had the banding procedure done, also treated with octreotide infusion. As per GI the banding will be done to obiliteration so she doesn't need a beta avis. We'll start her on a PPI. She is eating a regular diet and ambulated independently with nursing today. She was seen by the social media content specialist and refused IOP and is going to follow-up with AA alone. We have given her a referral for GI for close outpatient follow-up and alcohol cessation counseling.
[2017-12-10 08:00] VITALS: BP 130/80
[2017-12-10 09:42] LABS: ABSOLUTE BASOPHIL COUNT 0 /CUMM (0.0-0.2); ABSOLUTE EOSINOPHIL COUNT 0.3 /CUMM (0.0-0.7); ABSOLUTE GRANULOCYTE CT 3.1 /CUMM (1.4-6.5); ABSOLUTE LYMPH COUNT 1.3 /CUMM (1.2-3.4); ABSOLUTE MONOCYTE COUNT 0.4 /CUMM (0.10-0.60); BASOPHIL % 0.3 % (0.0-2.0); GRANULOCYTE % 62.1 % (42.2-75.2); HEMATOCRIT 24.9 % (37-47); MEAN CORPUSCULAR HGB 28.7 PG (27.0-31.0); MEAN CORPUSCULAR HGB CONC 31.7 G/DL (33.0-37.0); MEAN CORPUSCULAR VOLUME 90.6 FL (81.0-99.0); MEAN PLATELET VOLUME 9.4 FL (7.4-10.4); PLATELET COUNT 67 /CUMM (130-400); RBC DISTRIBUTION WIDTH 17.2 % (11.5-14.5); RED BLOOD CELL CT 2.75 /CUMM (4.20-5.40); WHITE BLOOD CELL COUNT 5.1 /CUMM (4.8-10.8)
--- NOTE | 2017-12-10 10:09 | PN- Gastroenterology ---
Assessment/Plan GI Assessment/Recommendations: ASSESSMENT: 1. Acute Blood Loss Anemia -- H/H Stable 2. Esophageal Varices with Hemorrhage, s/p Esophageal Band Ligation -- no further bleeding 3. Chronic Hepatitis C 4. Alcohol Dependence, Ongoing 5. Thrombocytopenia, Coagulopathy RECOMMENDATIONS: 1. Stable for discharge 2. Needs follow up with me in 7-10 days 3. Will need repeat EGD in 14 days to document banding to obliteration 4. Discharge on Pantoprazole 40 mg daily 5. Need for follow up and abstinence from alcohol discussed with patient 6. Prior to discharge have patient meet with social work for referral to alcohol abstinence programs Objective Vital Signs and I&Os Vital Signs Date Time Temp Pulse Resp B/P B/P Pulse O2 O2 Flow FiO2 Mean Ox Delivery Rate 12/10 0942 98.3 78 20 130/80 12/10 0604 98.3 78 20 130/80 97 Room Air 12/10 0000 98.6 83 20 140/80 12/09 1915 98.6 83 20 140/80 100 Room Air 12/09 1600 97.5 77 20 126/72 12/09 1600 98.0 77 20 126/72 98 Nasal Room Air Cannula 12/09 1200 98.2 88 28 128/80 12/09 1200 99 Room Air Intake & Output 12/10 1600 12/10 0400 12/09 1600 12/09 0400 12/08 1600 12/08 0400 Intake Total 814 031 3704 1040 1950 770 Output Total 814 181 6537 200 Balance 360 120 868 465 850 570 Intake, IV 806 341 6996 400 Intake, Oral 360 120 600 640 600 370 Number 1 1 2 Bowel Movements Output, Urine 300 008 6901 200 Patient 235 lb Weight Current Medications: Current Medications Sig/Param Start time Last Medication Dose Route Stop Time Status Admin Benzocaine/Menthol 1 TORSTEN Q2P PRN 12/07 1000 AC 12/07 PO 1041 Folic Acid 1 MG DAILY 12/09 1000 AC 12/10 PO 0942 Hydrochlorothiazide 12.5 MG DAILY 12/10 1000 AC 12/10 PO 0942 Lorazepam 0 Q1P PRN 12/06 2030 AC 12/09 IV 2231 Losartan Potassium 25 MG DAILY 12/10 1000 AC 12/10 PO 0942 Multivitamins 1 TAB DAILY 12/09 1000 AC 12/10 PO 0942 Octreotide Acetate 500 MCG Q10H 12/08 1100 DC 12/09 Sodium Chloride 500 ML IV 0709 Omeprazole 40 MG DAILY AC 12/09 0850 AC 12/10 PO 0606 Ondansetron HCl 4 MG ONCE ONE 12/09 2215 DC 12/09 IV 12/09 2216 2231 Ondansetron HCl 4 MG ONCE ONE 12/09 1430 DC 12/09 IV 12/09 1431 1454 Phenol 2 SPRAY Q2P PRN 12/07 194 AC 12/07 EXT 2027 Thiamine HCl 100 MG DAILY 12/09 1000 AC 12/10 PO 0941 Results Pertinent Lab Results: Laboratory Tests 12/10 12/09 0754 1730 Chemistry Sodium (137 - 145 mmol/L) 138 Potassium (3.5 - 5.1 mmol/L) 3.5 Chloride (98 - 107 mmol/L) 106 Carbon Dioxide (22 - 30 mmol/L) 24 Anion Gap (5 - 16) 7 BUN (7 - 17 mg/dL) 14 Creatinine (0.5 - 1.0 mg/dL) 0.6 Estimated GFR (>60 ml/min) > 60 BUN/Creatinine Ratio (7 - 25 %) 23.3 Magnesium (1.6 - 2.3 mg/dL) 1.4 L Hematology CBC w Diff Pending NO MAN DIFF REQ WBC (4.8 - 10.8 /CUMM) Pending 6.4 RBC (4.20 - 5.40 /CUMM) Pending 2.89 L Hgb (12.0 - 16.0 G/DL) Pending 8.5 L Hct (37 - 47 %) Pending 25.9 L MCV (81.0 - 99.0 FL) Pending 89.5 MCH (27.0 - 31.0 PG) Pending 29.4 MCHC (33.0 - 37.0 G/DL) Pending 32.8 L RDW (11.5 - 14.5 %) Pending 17.1 H Plt Count (130 - 400 /CUMM) Pending 76 L MPV (7.4 - 10.4 FL) Pending 8.7 Gran % (42.2 - 75.2 %) 65.5 Lymphocytes % (20.5 - 51.1 %) 23.1 Monocytes % (1.7 - 9.3 %) 5.9 Eosinophils % (0 - 5 %) 5.0 Basophils % (0.0 - 2.0 %) 0.5 Absolute Granulocytes (1.4 - 6.5 /CUMM) 4.2 Absolute Lymphocytes (1.2 - 3.4 /CUMM) 1.5 Absolute Monocytes (0.10 - 0.60 /CUMM) 0.4 Absolute Eosinophils (0.0 - 0.7 /CUMM) 0.3 Absolute Basophils (0.0 - 0.2 /CUMM) 0 12/09 12/08 0415 1840 Chemistry Sodium (137 - 145 mmol/L) 140 Potassium (3.5 - 5.1 mmol/L) 3.8 Chloride (98 - 107 mmol/L) 108 H Carbon Dioxide (22 - 30 mmol/L) 24 Anion Gap (5 - 16) 8 BUN (7 - 17 mg/dL) 17 Creatinine (0.5 - 1.0 mg/dL) 0.7 Estimated GFR (>60 ml/min) > 60 Glucose (65 - 99 mg/dL) 87 Calcium (8.4 - 10.2 mg/dL) 7.4 L Phosphorus (2.5 - 4.5 mg/dL) 3.1 Magnesium (1.6 - 2.3 mg/dL) 1.5 L Total Bilirubin (0.2 - 1.3 mg/dL) 2.4 H Direct Bilirubin (< 0.4 mg/dL) 1.7 H AST (14 - 36 U/L) 194 H ALT (9 - 52 U/L) 115 H Alkaline Phosphatase (<127 U/L) 82 Total Protein (6.3 - 8.2 g/dL) 5.3 L Albumin (3.5 - 5.0 g/dL) 2.1 L Coagulation PT (9.4 - 12.5 SEC) 18.0 H INR (0.90 - 1.19) 1.64 H Hematology CBC w Diff NO MAN DIFF REQ NO MAN DIFF REQ WBC (4.8 - 10.8 /CUMM) 5.8 5.7 RBC (4.20 - 5.40 /CUMM) 2.79 L 2.92 L Hgb (12.0 - 16.0 G/DL) 8.1 L 8.5 L Hct (37 - 47 %) 24.9 L 26.0 L MCV (81.0 - 99.0 FL) 89.1 89.2 MCH (27.0 - 31.0 PG) 28.9 29.1 MCHC (33.0 - 37.0 G/DL) 32.5 L 32.6 L RDW (11.5 - 14.5 %) 17.6 H 18.0 H Plt Count (130 - 400 /CUMM) 65 L 68 L MPV (7.4 - 10.4 FL) 9.0 8.8 Gran % (42.2 - 75.2 %) 60.1 64.6 Lymphocytes % (20.5 - 51.1 %) 27.7 21.9 Monocytes % (1.7 - 9.3 %) 6.0 6.5 Eosinophils % (0 - 5 %) 5.4 H 6.1 H Basophils % (0.0 - 2.0 %) 0.8 0.9 Absolute Granulocytes (1.4 - 6.5 /CUMM) 3.5 3.7 Absolute Lymphocytes (1.2 - 3.4 /CUMM) 1.6 1.2 Absolute Monocytes (0.10 - 0.60 /CUMM) 0.3 0.4 Absolute Eosinophils (0.0 - 0.7 /CUMM) 0.3 0.3 Absolute Basophils (0.0 - 0.2 /CUMM) 0 0 12/08 12/08 0930 0500 Chemistry Sodium (137 - 145 mmol/L) 143 Potassium (3.5 - 5.1 mmol/L) 3.6 Chloride (98 - 107 mmol/L) 108 H Carbon Dioxide (22 - 30 mmol/L) 27 Anion Gap (5 - 16) 8 BUN (7 - 17 mg/dL) 24 H Creatinine (0.5 - 1.0 mg/dL) 0.8 Estimated GFR (>60 ml/min) > 60 Glucose (65 - 99 mg/dL) 78 Calcium (8.4 - 10.2 mg/dL) 7.2 L Phosphorus (2.5 - 4.5 mg/dL) 2.6 Magnesium (1.6 - 2.3 mg/dL) 1.7 Total Bilirubin (0.2 - 1.3 mg/dL) 2.5 H Direct Bilirubin (< 0.4 mg/dL) 1.6 H AST (14 - 36 U/L) 208 H ALT (9 - 52 U/L) 100 H Alkaline Phosphatase (<127 U/L) 83 Total Protein (6.3 - 8.2 g/dL) 5.4 L Albumin (3.5 - 5.0 g/dL) 2.2 L Coagulation PT (9.4 - 12.5 SEC) 18.7 H INR (0.90 - 1.19) 1.71 H Hematology CBC w Diff NO MAN DIFF REQ WBC (4.8 - 10.8 /CUMM) 7.8 RBC (4.20 - 5.40 /CUMM) 2.84 L Hgb (12.0 - 16.0 G/DL) 8.2 L Hct (37 - 47 %) 25.1 L MCV (81.0 - 99.0 FL) 88.5 MCH (27.0 - 31.0 PG) 28.7 MCHC (33.0 - 37.0 G/DL) 32.5 L RDW (11.5 - 14.5 %) 17.4 H Plt Count (130 - 400 /CUMM) 79 L MPV (7.4 - 10.4 FL) 8.9 Gran % (42.2 - 75.2 %) 50.9 Lymphocytes % (20.5 - 51.1 %) 35.2 Monocytes % (1.7 - 9.3 %) 7.3 Eosinophils % (0 - 5 %) 6.0 H Basophils % (0.0 - 2.0 %) 0.6 Absolute Granulocytes (1.4 - 6.5 /CUMM) 4.0 Absolute Lymphocytes (1.2 - 3.4 /CUMM) 2.7 Absolute Monocytes (0.10 - 0.60 /CUMM) 0.6 Absolute Eosinophils (0.0 - 0.7 /CUMM) 0.5 Absolute Basophils (0.0 - 0.2 /CUMM) 0 Serology HCV RNA (PCR) IUs/ml (NOT DETECTED IU/mL) [id number] H HCV RNA PCR log IUs/ml (NOT DETECTED) 5.91 H 18 12/07 2345 1530 Chemistry Potassium (3.5 - 5.1 mmol/L) 3.6 Magnesium (1.6 - 2.3 mg/dL) 1.6 Hematology CBC w Diff NO MAN DIFF REQ NO MAN DIFF REQ WBC (4.8 - 10.8 /CUMM) 6.0 6.7 RBC (4.20 - 5.40 /CUMM) 2.62 L 2.65 L Hgb (12.0 - 16.0 G/DL) 7.6 L 7.6 L Hct (37 - 47 %) 22.9 L 23.3 L MCV (81.0 - 99.0 FL) 87.4 87.8 MCH (27.0 - 31.0 PG) 28.9 28.8 MCHC (33.0 - 37.0 G/DL) 33.1 32.8 L RDW (11.5 - 14.5 %) 17.1 H 17.7 H Plt Count (130 - 400 /CUMM) 63 L 65 L MPV (7.4 - 10.4 FL) 8.7 9.2 Gran % (42.2 - 75.2 %) 53.4 54.6 Lymphocytes % (20.5 - 51.1 %) 32.8 34.0 Monocytes % (1.7 - 9.3 %) 8.1 6.4 Eosinophils % (0 - 5 %) 5.1 H 4.4 Basophils % (0.0 - 2.0 %) 0.6 0.6 Absolute Granulocytes (1.4 - 6.5 /CUMM) 3.2 3.7 Absolute Lymphocytes (1.2 - 3.4 /CUMM) 2.0 2.3 Absolute Monocytes (0.10 - 0.60 /CUMM) 0.5 0.4 Absolute Eosinophils (0.0 - 0.7 /CUMM) 0.3 0.3 Absolute Basophils (0.0 - 0.2 /CUMM) 0 0 03/18 1010 Hematology CBC w Diff NO MAN DIFF REQ WBC (4.8 - 10.8 /CUMM) 7.4 RBC (4.20 - 5.40 /CUMM) 2.98 L Hgb (12.0 - 16.0 G/DL) 8.4 L Hct (37 - 47 %) 26.4 L MCV (81.0 - 99.0 FL) 88.4 MCH (27.0 - 31.0 PG) 28.1 MCHC (33.0 - 37.0 G/DL) 31.8 L RDW (11.5 - 14.5 %) 17.5 H Plt Count (130 - 400 /CUMM) 77 L MPV (7.4 - 10.4 FL) 8.9 Gran % (42.2 - 75.2 %) 63.0 Lymphocytes % (20.5 - 51.1 %) 27.1 Monocytes % (1.7 - 9.3 %) 6.3 Eosinophils % (0 - 5 %) 2.9 Basophils % (0.0 - 2.0 %) 0.7 Absolute Granulocytes (1.4 - 6.5 /CUMM) 4.7 Absolute Lymphocytes (1.2 - 3.4 /CUMM) 2.0 Absolute Monocytes (0.10 - 0.60 /CUMM) 0.5 Absolute Eosinophils (0.0 - 0.7 /CUMM) 0.2 Absolute Basophils (0.0 - 0.2 /CUMM) 0.1
[2017-12-10 12:00] VITALS: BP 130/80
[2017-12-10] MEDS ORDERED: ONE DAILY MULT1 EAC2 PO (13:29)
[2017-12-10] MEDS ORDERED: FOLIC ACID1 M1 PO (13:29)
[2017-12-10] MEDS ORDERED: VITAMIN B-1100 MG PO (13:29)
[2017-12-10] MEDS ORDERED: OMEPRAZOLE20 M2 PO (13:29)
--- NOTE | 2017-12-10 13:31 | Patient Discharge Instructions ---
Discharge Instructions General Discharge Information You were seen/treated for: Esophageal varices You had these procedures: Variceal banding Special Instructions: Follow up with your PCP within 1 week of discharge Follow up with GI upon discharge for a repeat endoscopy in 2 weeks As discussed follow up for an appointment with AA Diet Continue normal diet: Yes Activity Full Activity/No Limits: Yes Acute Coronary Syndrome Inclusion Criteria At DC or during hospital stay patient has or had the following: ACS DIAGNOSIS No Discharge Core Measures Meds if any: Prescribed or Continued at Discharge Meds if any: NOT Prescribed or Continued at Discharge Congestive Heart Failure Inclusion Criteria At DC or during hospital stay patient has or had the following: CHF DIAGNOSIS No Discharge Core Measures Meds if any: Prescribed or Continued at Discharge Meds if any: NOT Prescribed or Continued at Discharge Cerebrovascular accident Inclusion Criteria At DC or during hospital stay patient has or had the following: CVA/TIA Diagnosis No Discharge Core Measures Meds if any: Prescribed or Continued at Discharge Meds if any: NOT Prescribed or Continued at Discharge Venous thromboembolism Inclusion Criteria VTE Diagnosis No VTE Type NONE VTE Confirmed by (Test) NONE Discharge Core Measures - Per Current guidelines, there needs to be overlap - treatment for the first 5 days of Warfarin therapy. - If discharged on Warfarin prior to 5 days of - overlap therapy, the patient will need to be - assessed for post discharge needs including - *Post discharge parental anticoagulation - *Warfarin and/or parental anticoagulation education - *Follow up date to check INR post discharge At least 5 days overlap therapy as Inpatient No Meds if any: Prescribed or Continued at Discharge Note: Overlap Therapy is Warfarin and Anticoagulant Meds if any: NOT Prescribed or Continued at Discharge
[2017-12-10] MEDS ORDERED: MELATONIN3 M4 PO (13:49)
--- NOTE | 2017-12-10 14:37 | Discharge Summary ---
Visit Information Visit Dates Admission Date: 12/06/17 Discharge Date: 12/10/17 Hospital Course Course Attending Physician: Martina Bhagat MD Primary Care Physician: Krishan Cabezas MD Hospital Course: Ms. Nichols is a 52-year-old female with past medical history of cirrhosis ( since 1996) with hemorrhagic gastropathy secondary to portal hypertension and grade 2 esophageal varices, hepatitis C (since 1996), alcohol abuse, hypertension, thrombocytopenia, anxiety, morbid obesity, presented to the emergency department with complaints of hematemesis and melena. She was admitted to the ICU for further evaluation and management. Acute blood loss anemia secondary to esophageal varices Gastroenterology was consulted. She remained stable in the ICU and did not have any other episodes of bleeding and eventually transferred to the general medical floor. She was adequately volume resuscitated, and an upper GI endoscopy was performed that demonstrated a grade 2 esophageal varices and banding was performed. She was given 1 unit of leukocyte reduced packed red blood cells the day of the procedure due to a drop of hemoglobin from 8.6 to 6.7. Her hemoglobin subsequently trended up. She was given IV ceftriaxone for prophylaxis of banding. Patient was not started on beta avis as patient was banded to obliteration. Her diet was advanced as tolerated. She was instructed to follow- up with gastroenterology for a repeat EGD in 2 weeks for possible repeat banding of esophageal varices. Supratherapeutic INR Patient has a history of cirrhosis and initially presented with INR of 2.04, she had not been on any anticoagulation. An ultrasound of the abdomen was done that showed increase in hepatic echotexture, consistent with fatty infiltration or hepatocellular disease. She was given 1 unit of FFP before the endoscopy procedure. Her INR subsequently trended down. Alcohol dependence Patient had been counseled to stop alcohol use. She was given Ativan as needed per [facility]. Social work was consulted and patient was offered an appointment at an [facility] but patient refused. Patient then agreed to self schedule an appointment with AA. Gastritis/Portal hypertensive gastropathy She was started on a PPI. Her diet was advanced as tolerated. Allergies: Coded Allergies: NO KNOWN ALLERGIES (02/14/11) Significant Procedures: Procedure Date: 12/06/17 Procedure Type: EGD with band ligation of esophageal varices Findings: 1. One column of grade 2 esophageal varices with stigmata of bleeding 2. Portal hypertensive gastropathy Impression: 1. One column of grade 2 esophageal varices with stigmata of bleeding 2. Portal hypertensive gastropathy Pertinent Lab Results: 12/06/17-1323 US-LIMITED ABDOMEN IMPRESSION: 1. There is generalized increase in hepatic echotexture, consistent with fatty infiltration or hepatocellular disease. Please correlate clinically. No focal hepatic mass or intrahepatic biliary dilatation is seen. 2. Limited ultrasound examination of the pancreas due to overlapping bowel gas. Disposition Summary Disposition Principal Diagnosis: Acute blood loss anemia Grade 2 Esophageal varices Additional Diagnosis: Supratherapeutic INR Alcohol dependence Gastritis Portal hypertensive gastropathy Discharge Disposition: home or self care Discharge Instructions General Discharge Information Code Status: Full Code Patient's Diet: Regular Patient's Activity: Full Follow-Up Instructions/Appts: Follow up with your PCP within 1 week of discharge Follow up with GI upon discharge for a repeat endoscopy in 2 weeks As discussed follow up for an appointment with AA Medications at Discharge Discharge Medications: Continue taking these medications: Losartan/Hydrochlorothiazide (Losartan-Hctz 50-12.5 MG Tab) 1 EACH TABLET 1 Tablet ORAL DAILY Qty = 30 Comments: LAST TAKEN: 12/10/17 @ 9 AM Bifidobacterium Infantis (Align) (Unknown Strength) CAPSULE Unknown Dose ORAL DAILY Comments: NOT TAKEN IN HOSPITAL Ascorbic Acid (Vitamin C) 1,000 MG TABLET 1 Tablet ORAL DAILY Comments: NOT TAKEN IN HOSPITAL Turmeric Root Extract (Turmeric) 500 MG CAPSULE 2 Capsule ORAL DAILY Comments: NOT TAKEN IN HOSPITAL Cyanocobalamin (Vitamin B-12) (Vitamin B-12) 500 MCG TABLET 1 Tablet ORAL DAILY Comments: LAST TAKEN: 12/10/17 @ 9 AM Naphazoline HCl/Glycerin (Clear Eyes Redness Relief Drop) 0.012 %-0.25 % DROPS 1 DROP Both Eyes As Directed as needed for DRY EYES Comments: NO TAKEN IN HOSPITAL Start taking the following new medications: Omeprazole (Omeprazole) 20 MG CAPSULE.DR 40 Milligram ORAL DAILY BEFORE BREAKFAST Qty = 15 No Refills Folic Acid (Folic Acid) 1 MG TABLET 1 Milligram ORAL DAILY Qty = 30 No Refills Thiamine HCl (Vitamin B-1) 100 MG TABLET 100 Milligram ORAL DAILY Qty = 30 No Refills Multivitamin (One Daily Multivitamin) 1 EACH TABLET 1 Tablet ORAL DAILY Qty = 30 No Refills Melatonin (Melatonin) 3 MG TABLET 1 Tablet ORAL Every night Qty = 15 No Refills Copies To: Jocelynn CRYSTAL,Krishan Garcia; Lewis CRYSTAL,Meryl
== END 2017-12-10 15:00 | DRG 811 ==
LOC: ERH 09:27 → ERHI 15:07 → CRI 15:07 → 2NA 15:07 → ENRESERV 16:43 → ENTRNSPT 17:21 → EDTRNSPTSTS 17:28 → CRI 17:34 → CMPTRNSPT 18:18 → ENTRNSPT 12-09 18:22 → CMPTRNSPT 12-09 18:56 → 2NA 12-09 19:00 → ENPENDDIS 12-10 13:56 → 2NA 12-10 15:00
PROVIDERS: Internal Medicine; Physician Assistant; Student in an Organized Health Care Education/Training Program
PROC: 06L38CZ Occlusion of Esophageal Vein with Extraluminal Device, Via Natural or Artificial Opening Endoscopic (ICD-10-PCS; principal; 2017-12-06)
PROC: 30233N1 Transfusion of Nonautologous Red Blood Cells into Peripheral Vein, Percutaneous Approach (ICD-10-PCS; 2017-12-07)
DX: D62 Acute posthemorrhagic anemia (principal); I85.01 Esophageal varices with bleeding; K92.0 Hematemesis; D68.9 Coagulation defect, unspecified; E66.01 Morbid (severe) obesity due to excess calories; D69.6 Thrombocytopenia, unspecified; K76.6 Portal hypertension; Z68.41 Body mass index [BMI] 40.0-44.9, adult; K31.89 Other diseases of stomach and duodenum; B18.2 Chronic viral hepatitis C; F10.10 Alcohol abuse, uncomplicated; F41.9 Anxiety disorder, unspecified; K57.90 Diverticulosis of intestine, part unspecified, without perforation or abscess without bleeding; Z87.891 Personal history of nicotine dependence; E87.6 Hypokalemia; E83.42 Hypomagnesemia; K70.30 Alcoholic cirrhosis of liver without ascites; D64.9 Anemia, unspecified; J45.909 Unspecified asthma, uncomplicated; M19.91 Primary osteoarthritis, unspecified site; K27.7 Chronic peptic ulcer, site unspecified, without hemorrhage or perforation
CPT/HCPCS: 2NAP; CCU; 36415; 36592; 82436; 86920; 87804; 87804-59; 93005; 93010; 96365; 96375; 96376; 99291; J0696; J2354; J2405; J2765; J3490; J7040; P9016